=== PATIENT | male | born 1960 ===

== ENCOUNTER 2017-04-05 10:07 | Observation (INO) | payer BC ==
[2017-04-05 11:46] LABS: BASO % 0.6 % (0.0-2.0); EOS # 0.2 K/uL (0.0-0.7); EOS % 1.8 % (0.0-4.0); HEMATOCRIT 47.4 % (35.0-51.0); LYMPH # 2.6 K/uL (1.0-4.3); LYMPH % 29.5 % (20.0-40.0); MEAN CORPUSCULAR HEMOGLOBIN 28.6 pg (27.0-31.0); MEAN CORPUSCULAR HGB CONC 32.9 g/dL (33.0-37.0); MEAN PLATELET VOLUME 8.1 fL (7.2-11.7); MONO # 0.7 K/uL (0.0-0.8); RED CELL DISTRIBUTION WIDTH 15.1 % (11.5-14.5); WHITE BLOOD COUNT 8.7 K/uL (4.8-10.8)
[2017-04-05 11:55] LABS: CHLORIDE 103 mmol/L (98-107)
[2017-04-05 11:56] LABS: POTASSIUM 4.1 mmol/L (3.6-5.2); SODIUM 136 mmol/L (132-148)
[2017-04-05 11:58] LABS: BILIRUBIN,TOTAL 0.8 mg/dL (0.2-1.3); CARBON DIOXIDE 24 mmol/L (22-30); GFR AFRICAN-AMERICAN > 60
[2017-04-05 11:59] LABS: ALB/GLOB RATIO 1.4 (1.0-2.1); ALKALINE PHOSPHATASE 57 U/L (38-126); ALT/SGPT 51 U/L (21-72); AST/SGOT 39 U/L (17-59); BLOOD UREA NITROGEN 11 mg/dL (9-20); CALCIUM 8.6 mg/dl (8.6-10.4); GLUCOSE,RANDOM 133 mg/dL (75-110); TOTAL PROTEIN 7.4 g/dL (6.3-8.3)
--- NOTE | 2017-04-05 12:09 | C.PDOC ---
History Of Present Illness 57 year old patient, with a past medical history of asthma, presents to the ED complaining of intermittent chest pain and tightness for the past week. Patient states his symptoms are non-radiating, episodes last for 1-2 hours, and resolves spontaneously. Patient was seen by Dr. Jurado about 1 week ago. He was referred to Dr. Cr for a stress test. He was unable to get the stress test done until blood work was done. He rescheduled his stress test for 3 days from today. Patient states the pain was more severe last night which prompted the visit to the ED. He states the symptoms have resolved now after taking some Tylenol. Patient denies nausea, vomiting, shortness of breath, or diaphoresis. Time Seen by Provider: 04/05/17 11:45 Chief Complaint (Nursing): Chest Pain History Per: Patient History/Exam Limitations: no limitations Onset/Duration Of Symptoms: Intermittent Episodes (1 week) Current Symptoms Are (Timing): Still Present Context: Other Severity: Mild Pain Scale Rating Of: 3 Quality: Tightness, "Pain" Exacerbating Factors: None Alleviating Factors: None Recent travel outside of the [place]: No Past Medical History Reviewed: Historical Data, Nursing Documentation, Vital Signs Vital Signs: Last Vital Signs Temp 98.5 F 04/05/17 10:43 Pulse 69 04/05/17 10:43 Resp 20 04/05/17 10:43 BP 157/92 H 04/05/17 10:43 Pulse Ox 95 04/05/17 12:28 - Medical History PMH: Asthma Family History: States: Unknown Family Hx - Social History Hx Alcohol Use: No Hx Substance Use: No - Immunization History Hx Tetanus Toxoid Vaccination: No Hx Influenza Vaccination: No Hx Pneumococcal Vaccination: No Review Of Systems Except As Marked, All Systems Reviewed And Found Negative. Constitutional: Negative for: Other (diaphoresis) Cardiovascular: Positive for: Chest Pain Respiratory: Negative for: Shortness of Breath Gastrointestinal: Negative for: Nausea, Vomiting Physical Exam - Physical Exam Appears: Non-toxic, No Acute Distress Skin: Warm, Dry Head: Atraumatic, Normacephalic Eye(s): bilateral: Normal Inspection, EOMI Oral Mucosa: Moist Neck: Normal ROM, Supple Chest: Symmetrical, No Tenderness Cardiovascular: Rhythm Regular Respiratory: Normal Breath Sounds, No Rales, No Rhonchi, No Wheezing Gastrointestinal/Abdominal: Soft, No Tenderness Back: Normal Inspection, No CVA Tenderness Extremity: Normal ROM Neurological/Psych: Oriented x3, Normal Speech, Normal Cognition, Normal Motor, Normal Sensation Gait: Steady ED Course And Treatment - Laboratory Results Result Diagrams: 04/05/17 11:43 04/05/17 11:43 ECG: Interpreted By Me, Viewed By Me ECG Rhythm: Sinus Rhythm ECG Interpretation: Normal Rate From EC (bpm) O2 Sat by Pulse Oximetry: 95 (room air) Pulse Ox Interpretation: Normal Progress Note: Plan: EKG, Labs Medical Decision Making Medical Decision Making: discussed with Dr Jurado; [pt to be admitted for cp, but to Dr Jose Ramon Manjarrez. discussed with Dr Manjarrez, will admit to his service. Disposition Discussed With : Armida Manjarrez - Disposition Disposition: HOSPITALIZED Disposition Time: 13:38 Condition: STABLE - Clinical Impression Clinical Impression: Chest pain, Angina at rest - PA / SOUR BLEACHING PLEATER / Resident Statement MD/DO has reviewed & agrees with the documentation as recorded. - Scribe Statement The provider has reviewed the documentation as recorded by the Scribe Samanta Manjarrez All medical record entries made by the Scribe were at my direction and personally dictated by me. I have reviewed the chart and agree that the record accurately reflects my personal performance of the history, physical exam, medical decision making, and the department course for this patient. I have also personally directed, reviewed, and agree with the discharge instructions and disposition.
--- NOTE | 2017-04-05 14:04 | RAD ---
HISTORY: chest pain COMPARISON: None available TECHNIQUE: Chest PA and lateral FINDINGS: LUNGS: No focal consolidation. Please note that chest x-ray has limited sensitivity for the detection of pulmonary masses. PLEURA: No significant pleural effusion identified. No definite pneumothorax . CARDIOVASCULAR: Heart size appears within normal limits. OSSEOUS STRUCTURES: Degenerative changes of the spine. VISUALIZED UPPER ABDOMEN: Unremarkable. OTHER FINDINGS: None. IMPRESSION: No focal consolidation, significant pleural effusion, or definite pneumothorax identified.
--- NOTE | 2017-04-05 15:59 | CP.PCM.HP ---
History of Present Illness - History of Present Illness History of Present Illness: 57 years old male patient with past medical history of asthma presented to the emergency department with complaint of intermittent chest pain for the last 1 week. Pain is not radiating anywhere. Patient consulted Dr. Jurado 1 week back and referred for stress test but did not get a stress test done as blood work was pending. Patient states that the pain resolved after taking Tylenol. No fever nausea vomiting. No shortness of breath, no palpitation. Present on Admission - Present on Admission Any Indicators Present on Admission: No Past Patient History - Past Social History Smoking Status: Light Smoker < 10 Cigarettes Daily - PULMONARY Hx Asthma: Yes - PSYCHIATRIC Hx Substance Use: No - SURGICAL HISTORY Hx Orthopedic Surgery: Yes (BL hands) Meds Home Medications: Home Medication List Medication Instructions Recorded Confirmed Type Azithromycin 250 mg PO DAILY 5 Days 04/07/17 Rx Allergies/Adverse Reactions: Allergies Allergy/AdvReac Type Severity Reaction Status Date / Time No Known Allergies Allergy Verified 04/05/17 10:45 Physical Exam - Constitutional Appears: Well - Head Exam Head Exam: ATRAUMATIC, NORMAL INSPECTION, NORMOCEPHALIC - Eye Exam Eye Exam: EOMI, Normal appearance, PERRL Pupil Exam: NORMAL ACCOMODATION, PERRL - ENT Exam ENT Exam: Mucous Membranes Moist, Normal Exam - Neck Exam Neck exam: Positive for: Normal Inspection - Respiratory Exam Respiratory Exam: Decreased Breath Sounds - Cardiovascular Exam Cardiovascular Exam: REGULAR RHYTHM, +S1, +S2 - GI/Abdominal Exam GI & Abdominal Exam: Diminished Bowel Sounds, Soft - Rectal Exam Rectal Exam: Deferred Results - Vital Signs Recent Vital Signs: Last Vital Signs Temp 98.4 F 04/05/17 14:30 Pulse 62 04/05/17 14:30 Resp 20 04/05/17 14:30 BP 140/79 04/05/17 14:30 Pulse Ox 97 04/05/17 14:30 - Labs Result Diagrams: 04/06/17 11:43 04/06/17 11:43 Assessment & Plan (1) Angina at rest Status: Acute (2) Asthma Status: Acute (3) Asthma Status: Acute (4) Bronchitis Status: Acute (5) Bronchitis Status: Acute (6) Chest pain Status: Acute - Assessment and Plan (Free Text) Plan: [email or web address] labs protonix lovenox asp idconsult duoneb dr. castellon for cardio alecia same
--- NOTE | 2017-04-05 19:06 | CON ---
DATE: 04/05/2017 REQUESTING PHYSICIAN: Dr. Angel Manjarrez. HISTORY OF PRESENT ILLNESS: A 57-year-old gentleman was brought in with a history of chest discomfor t described as a heaviness since 2:00 in the morning. The patient has a history of borderline hypert ension and diabetes and also severe back pains. He patient was seen in the office about 2 weeks ago with chest discomfort and shortness of breath. There was no history of peptic ulcer disease, bleedin g disorders, TIAs or CVAs. MEDICATIONS AT HOME: Include Percocet for the back pains. PRIMARY CARE PHYSICIAN: The patient is under care of Dr. Jurado has a primary care physician. PERSONAL HISTORY: Half pack per day smoker, but used to smoke a pack a day. No ETOH abuse. FAMILY HISTORY: Mother had diabetes and MO. PAST MEDICAL HISTORY: History of surgery in both the hands from trauma many years ago. REVIEW OF SYSTEMS: NEUROLOGIC: No syncope. No TIAs. No CVAs. Negative for numbness or tingling. HEENT: No visual disturbances. No hearing problems. RESPIRATORY: No cough, no wheeze. Chest discomfort both exertional and nonexertional dyspnea on exe rtion. CARDIOVASCULAR: History of hypertension. GASTROINTESTINAL: Negative peptic ulcer disease, no bleeding disorders. No dysuria. MUSCULOSKELETAL: Severe low back pain. PERIPHERAL VASCULAR SYSTEM: No claudication. PSYCHIATRIC: No depression. PHYSICAL EXAMINATION: GENERAL: Shows a middle-aged male, in no distress. VITAL SIGNS: He is 5 feet 9 inches and weighs 205 pounds. Blood pressure is 156/90, heart rate of 8 0, respiratory rate of 12, afebrile. HEENT: Normal. NECK: Supple. LUNGS: Clear bilaterally. HEART: PMI is normal. S1, S2 is normal. Soft S4 gallop. Grade I-II/ systolic ejection murmur in the mitral area. ABDOMEN: Soft, nontender. EXTREMITIES: No cyanosis, clubbing or edema. Distal pulses are intact. EKG: Sinus rhythm, within normal limits. ASSESSMENT: A 57-year-old man with history of chest discomfort, doubt myocardial infarction. High l ikelihood of . PLAN: Continue the Lovenox, add Cozaar. RECOMMENDATIONS: We will obtain an echocardiogram in the morning, lipid profile and need cardiac cat heterization. Procedure benefits, risks were explained to the patient. We will ask interventional c ardiology to obtain a cardiac catheterization. Wale Flaherty MD cc: [id number] TT: 04/05/2017 19:04:59 Confirmation # [id number] Dictation # [id number]
[2017-04-05] MEDS: Albuterol-Ipratrop 3 mg / 0.5 (3 ml) UD INH SCH (19:27)
[2017-04-05] MEDS: Oxycodone/Acetaminophen 5/325 mg Tab PO PRN (21:33)
[2017-04-06] MEDS: Albuterol-Ipratrop 3 mg / 0.5 (3 ml) UD INH SCH ×3 (02:30→13:31)
[2017-04-06] MEDS: Oxycodone/Acetaminophen 5/325 mg Tab PO PRN ×2 (07:39→20:24)
[2017-04-06] MEDS: Pantoprazole 40 mg EC Tab PO SCH (10:15)
[2017-04-06] MEDS: Enoxaparin 40 mg Syringe SC SCH (10:17)
[2017-04-06 11:53] LABS: BASO % 0.5 % (0.0-2.0); EOS # 0.1 K/uL (0.0-0.7); EOS % 1.2 % (0.0-4.0); HEMATOCRIT 43.8 % (35.0-51.0); LYMPH # 3.1 K/uL (1.0-4.3); LYMPH % 36.5 % (20.0-40.0); MEAN CELL VOLUME 87.7 fL (80.0-94.0); MEAN CORPUSCULAR HEMOGLOBIN 28.9 pg (27.0-31.0); MEAN CORPUSCULAR HGB CONC 32.9 g/dL (33.0-37.0); MEAN PLATELET VOLUME 8.5 fL (7.2-11.7); MONO # 0.6 K/uL (0.0-0.8); MONO % 7.6 % (0.0-10.0); RED CELL DISTRIBUTION WIDTH 14.6 % (11.5-14.5); WHITE BLOOD COUNT 8.4 K/uL (4.8-10.8)
[2017-04-06 12:17] LABS: CHLORIDE 102 mmol/L (98-107); SODIUM 137 mmol/L (132-148)
[2017-04-06 12:18] LABS: POTASSIUM 3.9 mmol/L (3.6-5.2)
[2017-04-06 12:20] LABS: ALB/GLOB RATIO 1.4 (1.0-2.1); ALKALINE PHOSPHATASE 61 U/L (38-126); ALT/SGPT 49 U/L (21-72); AST/SGOT 42 U/L (17-59); BILIRUBIN,TOTAL 0.6 mg/dL (0.2-1.3); BLOOD UREA NITROGEN 10 mg/dL (9-20); CARBON DIOXIDE 26 mmol/L (22-30); GFR AFRICAN-AMERICAN > 60; GLUCOSE,RANDOM 133 mg/dL (75-110); TOTAL PROTEIN 6.6 g/dL (6.3-8.3)
[2017-04-06 12:21] LABS: CALCIUM 8.3 mg/dl (8.6-10.4)
--- NOTE | 2017-04-06 13:37 | CP.PCM.PN ---
Subjective - Date & Time of Evaluation Date of Evaluation: 04/06/17 Time of Evaluation: 13:36 - Subjective Subjective: for cath today Objective - Vital Signs/Intake and Output Vital Signs (last 24 hours): Temp Pulse Resp BP Pulse Ox 97.4 F L 63 18 113/71 99 04/06/17 07:17 04/06/17 08:21 04/06/17 07:17 04/06/17 07:17 04/06/17 07:17 - Medications Medications: Current Medications Albuterol/Ipratropium (Duoneb 3 Mg/0.5 Mg (3 Ml) Ud) 3 ml INH RQ6 [facility] Last Admin: 04/06/17 13:31 Dose: 3 ml Aspirin (Aspirin Chewable) 81 mg PO DAILY [facility] Last Admin: 04/06/17 10:15 Dose: 81 mg Enoxaparin Sodium (Lovenox) 40 mg SC DAILY [facility] Last Admin: 04/06/17 10:17 Dose: Not Given Losartan Potassium (Cozaar) 50 mg PO DAILY [facility] Last Admin: 04/06/17 10:15 Dose: 50 mg Oxycodone/Acetaminophen (Percocet 5/325 Mg Tab) 2 tab PO Q6H PRN PRN Reason: Pain, severe (8-10) Last Admin: 04/06/17 07:39 Dose: 2 tab Pantoprazole Sodium (Protonix Ec Tab) 40 mg PO DAILY [facility] Last Admin: 04/06/17 10:15 Dose: 40 mg Rosuvastatin Calcium (Crestor) 10 mg PO HS [facility] Last Admin: 04/05/17 21:30 Dose: 10 mg - Labs Labs: 04/06/17 11:43 04/06/17 11:43 PT 10.6 SECONDS (9.7-12.2) 04/05/17 12:40 INR 1.0 04/05/17 12:40 APTT 33 SECONDS (21-34) 04/05/17 12:40 - Constitutional Appears: No Acute Distress - Eye Exam Eye Exam: Normal appearance - ENT Exam ENT Exam: Normal Exam - Respiratory Exam Respiratory Exam: Clear to Ausculation Bilateral - Cardiovascular Exam Cardiovascular Exam: REGULAR RHYTHM, +S4 - GI/Abdominal Exam GI & Abdominal Exam: Soft - Neurological Exam Neurological Exam: Alert, Oriented x3 Assessment and Plan - Assessment and Plan (Free Text) Assessment: chest pains.poss anginal.cath today
[2017-04-06] MEDS ORDERED: DiphenhydrAMINE 50 mg/ml Inj ONE (13:45)
[2017-04-06] MEDS ORDERED: Iodixanol 320 MG/ML 100 ML BOTTLE IV ONE (13:46)
--- NOTE | 2017-04-06 14:34 | CP.PCM.PN ---
Subjective - Date & Time of Evaluation Date of Evaluation: 04/06/17 Time of Evaluation: 14:29 - Subjective Subjective: CARDIAC CATHETERIZATION FINDINGS: LM: Normal LAD: average caliber, no obstruction LCX: Average caliber, no obstruction RCA: Dominant; average caliber, no obstruction LV: Normal contractility and wall motion, LVED: upper normal @15mmhg R. femoral sheath removed, manual pressure held; hemostasis achieved. Patient may be dc'd if appropriated by care team 4 hours after sheath pull if no cath related complaints. Objective - Vital Signs/Intake and Output Vital Signs (last 24 hours): Temp Pulse Resp BP Pulse Ox 97.4 F L 63 18 113/71 99 04/06/17 07:17 04/06/17 08:21 04/06/17 07:17 04/06/17 07:17 04/06/17 07:17 - Medications Medications: Current Medications Albuterol/Ipratropium (Duoneb 3 Mg/0.5 Mg (3 Ml) Ud) 3 ml INH RQ6 [facility] Last Admin: 04/06/17 13:31 Dose: 3 ml Aspirin (Aspirin Chewable) 81 mg PO DAILY [facility] Last Admin: 04/06/17 10:15 Dose: 81 mg Enoxaparin Sodium (Lovenox) 40 mg SC DAILY [facility] Last Admin: 04/06/17 10:17 Dose: Not Given Losartan Potassium (Cozaar) 50 mg PO DAILY [facility] Last Admin: 04/06/17 10:15 Dose: 50 mg Oxycodone/Acetaminophen (Percocet 5/325 Mg Tab) 2 tab PO Q6H PRN PRN Reason: Pain, severe (8-10) Last Admin: 04/06/17 07:39 Dose: 2 tab Pantoprazole Sodium (Protonix Ec Tab) 40 mg PO DAILY [facility] Last Admin: 04/06/17 10:15 Dose: 40 mg Rosuvastatin Calcium (Crestor) 10 mg PO HS [facility] Last Admin: 04/05/17 21:30 Dose: 10 mg - Labs Labs: 04/06/17 11:43 04/06/17 11:43 PT 10.6 SECONDS (9.7-12.2) 04/05/17 12:40 INR 1.0 04/05/17 12:40 APTT 33 SECONDS (21-34) 04/05/17 12:40
--- NOTE | 2017-04-06 15:08 | CARDCATH ---
PROCEDURE DATE: 04/06/2017 BRIEF HISTORY: The patient is a 57-year-old with history of chronic smoking, does not report hyperte nsion, diabetes, prior [place], stroke or any significant bleeding problems. He presented to the hospital with crescendo-like chest pain described as aching and dullness in the left chest, frequently recurr ing with exertion. His EKG was normal sinus rhythm. ACS was ruled out by enzymes and 2D echocardiogr am revealed normal LV function and wall motion. Based on his typical presentation, risks and benefit s of cardiac catheterization were explained and patient was agreeable and brought to cardiac catheter ization lab for evaluation. Informed consent was obtained after explaining risks and benefits. The patient was on treatment with Lovenox and Lovenox was held in the morning. The patient was prepped and draped in the usual sterile fashion and right femoral artery access was o btained using a micropuncture technique. A 6-Occitan sheath was placed in the right femoral artery an d diagnostic angiography was done using standard JL4, JR4 and pigtail catheters. FINDINGS: 1. Left main bifurcates into LAD and left circumflex. Left main was normal caliber and angiographic ally normal. 2. Left anterior descending artery was an average caliber vessel without angiographic obstruction. 3. Left circumflex was an average caliber vessel without angiographic obstruction. 4. Right coronary artery was a dominant vessel, average caliber and angiographically without obstruc tion. Left ventriculography was performed which showed normal left ventricular contractility with ejection fraction of 55% and measured LVEDP of 15 mmHg. CONCLUSIONS: 1. Angiographically normal coronary arteries. 2. Normal left ventricular contractility and upper normal left ventricular end-diastolic pressure. PLAN: 1. Suggest reevaluation for noncardiac causes of chest pain. 2. Smoking cessation strongly advised and patient was counseled. 3. Continue lifestyle modification, low cholesterol diet. 4. Right femoral artery sheath was removed and manual pressure was held until hemostasis achieved. The patient can be discharged if indicated 4 hours after sheath pull. Chicho Dial MD cc: [id number] TT: 04/06/2017 15:08:23 roly
[2017-04-06 15:44] VITALS: RESP 20
--- NOTE | 2017-04-06 16:00 | CP.PCM.CON ---
History of Present Illness - History of Present Illness History of Present Illness: History Of Present Illness 57 year old patient, with a past medical history of asthma, presents to the ED complaining of intermittent chest pain and tightness for the past week. Patient states his symptoms are non-radiating, episodes last for 1-2 hours, and resolves spontaneously. Patient was seen by Dr. Riley about 1 week ago. He was referred to Dr. Cr for a stress test. He was unable to get the stress test done until blood work was done. He rescheduled his stress test for 3 days from today. Patient states the pain was more severe last night which prompted the visit to the ED. He states the symptoms have resolved now after taking some Tylenol. Patient denies nausea, vomiting, shortness of breath, or diaphoresis. Review of Systems - Constitutional Constitutional: As Per HPI - EENT Eyes: absent: As Per HPI, Blind Spots, Blurred Vision, Change in Vision, Decreased Night Vision, Diplopia, Discharge, Dry Eye, Exophthalmos, Floaters, Irritation, Itchy Eyes, Loss of Peripheral Vision, Pain, Photophobia, Requires Corrective Lenses, Sees Flashes, Spots in Vision, Tunnel Vision, Other Visual Disturbances, Loss of Vision, Other Ears: absent: As Per HPI, Decreased Hearing, Ear Discharge, Ear Pain, Tinnitus, Abnormal Hearing, Disequilibrium, Dizziness, Other Nose/Mouth/Throat: absent: As Per HPI, Epistaxis, Nasal Congestion, Nasal Discharge, Nasal Obstruction, Nasal Trauma, Nose Pain, Post Nasal Drip, Sinus Pain, Sinus Pressure, Bleeding Gums, Change in Voice, Dental Pain, Dry Mouth, Dysphagia, Halitosis, Hoarsness, Lip Swelling, Mouth Lesions, Mouth Pain, Odynophagia, Sore Throat, Throat Swelling, Tongue Swelling, Facial Pain, Neck Pain, Neck Mass, Other - Cardiovascular Cardiovascular: As Per HPI - Respiratory Respiratory: As Per HPI, Cough, Dyspnea - Gastrointestinal Gastrointestinal: absent: As Per HPI, Abdominal Pain, Belching, Bloating, Change in Bowel Habits, Change in Stool Character, Coffee Ground Emesis, Constipation, Cramping, Diarrhea, Dyspepsia, Dysphagia, Early Satiety, Excessive Flatus, Fecal Incontinence, Heartburn, Hematemesis, Hematochezia, Loose Stools, Melena, Nausea, Odynophagia, Temesmus, Vomiting, Other - Genitourinary Genitourinary: absent: As Per HPI, Change in Urinary Stream, Difficulty Urinating, Dysuria, Flank Pain, Hematuria, Pyuria, Nocturia, Urinary Incontinence, Urinary Frequency, Urinary Hesitance, Urinary Urgency, Voiding Freq/Small Amts, Freq UTI, Hx Renal/Bladder Calculi, Hx /Renal Surgery, Bladder Distension, Other - Musculoskeletal Musculoskeletal: absent: As Per HPI, Abnormal Gait, Arthralgias, Atrophy, Back Pain, Deformity, Joint Swelling, Limited Range of Motion, Loss of Height, Muscle Cramps, Muscle Weakness, Myalgias, Neck Pain, Numbness, Radiating Pain into Limb, Stiffness, Tingling, Other - Integumentary Integumentary: absent: As Per HPI, Acne, Alopecia, Bleeding Lesions, Change in Hair, Change in Nails, Change in Pigmentation, Changing Lesions, Dry Skin, Erythema, Furuncle, Hirsutism, Lesions, New Lesions, Non-Healing Lesions, Photosensitivity, Pruritus, Rash, Skin Pain, Skin Ulcer, Sores, Striae, Swelling , Unusual Bruising, Wounds, Jaundice, Other - Neurological Neurological: absent: As Per HPI, Abnormal Gait, Abnormal Hearing, Abnormal Movements, Abnormal Speech, Behavioral Changes, Burning Sensations, Confusion, Convulsions, Disequilibrium, Dizziness, Numbness, Focal Weakness, Frequent Falls , Headaches, Lack of Coordination, Loss of Vision, Memory Loss, Paresthesias, Radicular Pain, Restless Legs, Sensory Deficit, Syncope, Tingling, Tremor, Vertigo, Weakness, Other Visual Disturbances, Other - Psychiatric Psychiatric: absent: As Per HPI, Abnormal Sleep Pattern, Anhedonia, Anxiety, Auditory Hallucinations, Behavioral Changes, Change in Appetite, Change in Libido, Confusion, Depression, Difficulty Concentrating, Hallucinations, Homicidal Ideation, Hopelessness, Irritability, Memory Loss, Mood Swings, Panic Attacks, Paranoia, Suicidal Ideation, Visual Hallucinations, Tactile Hallucinations, Other - Endocrine Endocrine: absent: As Per HPI, Change in Body Appearance, Change in Libido, Cold Intolorance, Deepening of Voice, Excessive Sweating, Fatigue, Flushing, Heat Intolorance, Increase in Ring/Shoe/Hat Size, Palpitations, Polydipsia, Polyphagia, Polyuria, Other - Hematologic/Lymphatic Hematologic: absent: As Per HPI, Easy Bleeding, Easy Bruising, Lymphadenopathy, Other Past Patient History - Past Medical History & Family History Past Medical History?: Yes - Past Social History Smoking Status: Light Smoker < 10 Cigarettes Daily - CARDIAC Hx Cardiac Disorders: No - PULMONARY Hx Asthma: Yes - NEUROLOGICAL Hx Neurological Disorder: No - HEENT Hx HEENT Problems: No - RENAL Hx Chronic Kidney Disease: No - ENDOCRINE/METABOLIC Hx Endocrine Disorders: No - HEMATOLOGICAL/ONCOLOGICAL Hx Hepatitis C: Yes - INTEGUMENTARY Hx Dermatological Problems: No - MUSCULOSKELETAL/RHEUMATOLOGICAL Hx Back Pain: Yes Hx Falls: No - GASTROINTESTINAL Hx Gastrointestinal Disorders: No - GENITOURINARY/GYNECOLOGICAL Hx Genitourinary Disorders: No - PSYCHIATRIC Hx Substance Use: No - SURGICAL HISTORY Hx Orthopedic Surgery: Yes (BL hands) - ANESTHESIA Hx Anesthesia: Yes Hx Anesthesia Reactions: No Hx Malignant Hyperthermia: No Has any member of the family had a problem w/ anesthesia?: No Meds Allergies/Adverse Reactions: Allergies Allergy/AdvReac Type Severity Reaction Status Date / Time No Known Allergies Allergy Verified 04/05/17 10:45 - Medications Medications: Current Medications Albuterol/Ipratropium (Duoneb 3 Mg/0.5 Mg (3 Ml) Ud) 3 ml INH RQ6 [facility] Last Admin: 04/06/17 13:31 Dose: 3 ml Aspirin (Aspirin Chewable) 81 mg PO DAILY [facility] Last Admin: 04/06/17 10:15 Dose: 81 mg Enoxaparin Sodium (Lovenox) 40 mg SC DAILY [facility] Last Admin: 04/06/17 10:17 Dose: Not Given Losartan Potassium (Cozaar) 50 mg PO DAILY [facility] Last Admin: 04/06/17 10:15 Dose: 50 mg Oxycodone/Acetaminophen (Percocet 5/325 Mg Tab) 2 tab PO Q6H PRN PRN Reason: Pain, severe (8-10) Last Admin: 04/06/17 07:39 Dose: 2 tab Pantoprazole Sodium (Protonix Ec Tab) 40 mg PO DAILY [facility] Last Admin: 04/06/17 10:15 Dose: 40 mg Rosuvastatin Calcium (Crestor) 10 mg PO HS [facility] Last Admin: 04/05/17 21:30 Dose: 10 mg Physical Exam - Constitutional Appears: Non-toxic, Chronically Ill - Head Exam Head Exam: NORMOCEPHALIC - Eye Exam Eye Exam: PERRL. absent: Scleral icterus - ENT Exam ENT Exam: Mucous Membranes Dry, Normal External Ear Exam - Neck Exam Neck exam: Negative for: Lymphadenopathy - Respiratory Exam Respiratory Exam: Decreased Breath Sounds, Rhonchi, Wheezes - Cardiovascular Exam Cardiovascular Exam: REGULAR RHYTHM, +S1, +S2 - GI/Abdominal Exam GI & Abdominal Exam: Diminished Bowel Sounds, Soft. absent: Tenderness - Rectal Exam Rectal Exam: Deferred - Exam Exam: NORMAL INSPECTION Results - Vital Signs Recent Vital Signs: Last Vital Signs Temp 98.2 F 04/06/17 15:43 Pulse 61 04/06/17 15:43 Resp 20 04/06/17 15:43 BP 117/69 04/06/17 15:43 Pulse Ox 96 04/06/17 15:43 - Labs Result Diagrams: 04/06/17 11:43 04/06/17 11:43 Labs: Laboratory Results - last 24 hr 04/05/17 04/06/17 04/06/17 18:01 06:25 11:43 WBC 8.4 RBC 5.00 Hgb 14.4 Hct 43.8 MCV 87.7 MCH 28.9 MCHC 32.9 L RDW 14.6 H Plt Count 201 MPV 8.5 Neut % (Auto) 54.2 Lymph % (Auto) 36.5 [place] % (Auto) 7.6 Eos % (Auto) 1.2 Baso % (Auto) 0.5 Neut # 4.6 Lymph # 3.1 [place] # 0.6 Eos # 0.1 Baso # 0.0 Sodium Potassium Chloride Carbon Dioxide Anion Gap BUN Creatinine Est GFR ( Amer) Est GFR (Non-Af Amer) Random Glucose Calcium Total Bilirubin AST ALT Alkaline Phosphatase Total Creatine Kinase 150 91 CK-MB (Mass) 1.37 1.01 Troponin I, Quant < 0.0120 < 0.0120 Total Protein Albumin Globulin Albumin/Globulin Ratio 04/06/17 11:43 WBC RBC Hgb Hct MCV MCH MCHC RDW Plt Count MPV Neut % (Auto) Lymph % (Auto) [place] % (Auto) Eos % (Auto) Baso % (Auto) Neut # Lymph # [place] # Eos # Baso # Sodium 137 Potassium 3.9 Chloride 102 Carbon Dioxide 26 Anion Gap 14 BUN 10 Creatinine 0.7 L Est GFR ( Amer) > 60 Est GFR (Non-Af Amer) > 60 Random Glucose 133 H Calcium 8.3 L Total Bilirubin 0.6 AST 42 ALT 49 Alkaline Phosphatase 61 Total Creatine Kinase CK-MB (Mass) Troponin I, Quant Total Protein 6.6 Albumin 3.9 Globulin 2.7 Albumin/Globulin Ratio 1.4 Assessment & Plan (1) Bronchitis Status: Acute (2) Bronchitis Status: Acute (3) Asthma Status: Acute (4) Asthma Status: Acute (5) Angina at rest Status: Acute (6) Chest pain Status: Acute - Assessment and Plan (Free Text) Assessment: CONT BRONCHODILATORS HOLD ANTIBIOTICS FOLLOW UP WITH DR RILEY OUT PT
--- NOTE | 2017-04-06 18:12 | CP.PCM.PN ---
Subjective - Date & Time of Evaluation Date of Evaluation: 04/06/17 Time of Evaluation: 13:20 - Subjective Subjective: clinically same Objective - Vital Signs/Intake and Output Vital Signs (last 24 hours): Temp Pulse Resp BP Pulse Ox 98.2 F 61 20 117/69 96 04/06/17 15:43 04/06/17 15:43 04/06/17 15:43 04/06/17 15:43 04/06/17 15:43 - Medications Medications: Current Medications Albuterol/Ipratropium (Duoneb 3 Mg/0.5 Mg (3 Ml) Ud) 3 ml INH RQ6 [facility] Last Admin: 04/06/17 13:31 Dose: 3 ml Aspirin (Aspirin Chewable) 81 mg PO DAILY [facility] Last Admin: 04/06/17 10:15 Dose: 81 mg Enoxaparin Sodium (Lovenox) 40 mg SC DAILY [facility] Last Admin: 04/06/17 10:17 Dose: Not Given Losartan Potassium (Cozaar) 50 mg PO DAILY [facility] Last Admin: 04/06/17 10:15 Dose: 50 mg Oxycodone/Acetaminophen (Percocet 5/325 Mg Tab) 2 tab PO Q6H PRN PRN Reason: Pain, severe (8-10) Last Admin: 04/06/17 07:39 Dose: 2 tab Pantoprazole Sodium (Protonix Ec Tab) 40 mg PO DAILY [facility] Last Admin: 04/06/17 10:15 Dose: 40 mg Rosuvastatin Calcium (Crestor) 10 mg PO HS [facility] Last Admin: 04/05/17 21:30 Dose: 10 mg - Labs Labs: 04/06/17 11:43 04/06/17 11:43 PT 10.6 SECONDS (9.7-12.2) 04/05/17 12:40 INR 1.0 04/05/17 12:40 APTT 33 SECONDS (21-34) 04/05/17 12:40 - Constitutional Appears: Well - Head Exam Head Exam: ATRAUMATIC, NORMAL INSPECTION, NORMOCEPHALIC - Eye Exam Eye Exam: EOMI, Normal appearance, PERRL Pupil Exam: NORMAL ACCOMODATION, PERRL - ENT Exam ENT Exam: Mucous Membranes Moist, Normal Exam - Neck Exam Neck Exam: Full ROM, Normal Inspection. absent: Lymphadenopathy - Respiratory Exam Respiratory Exam: Decreased Breath Sounds - Cardiovascular Exam Cardiovascular Exam: REGULAR RHYTHM, +S1, +S2 - GI/Abdominal Exam GI & Abdominal Exam: Soft, Diminished Bowel Sounds - Rectal Exam Rectal Exam: Deferred Assessment and Plan (1) Angina at rest Status: Acute (2) Asthma Status: Acute (3) Asthma Status: Acute (4) Bronchitis Status: Acute (5) Bronchitis Status: Acute (6) Chest pain Status: Acute - Assessment and Plan (Free Text) Plan: Consult cardiology Consult pulmonology ECG normal Duoneb Aspirin Lovenox Cozaar Percocet Scheduled for cath today
[2017-04-07] MEDS: Albuterol-Ipratrop 3 mg / 0.5 (3 ml) UD INH SCH ×3 (01:13→13:24)
[2017-04-07] MEDS: Oxycodone/Acetaminophen 5/325 mg Tab PO PRN ×2 (03:06→09:19)
--- NOTE | 2017-04-07 04:39 | CARD ---
APPROVED REPORT EXAM: Two-dimensional and M-mode echocardiogram with Doppler and color Doppler. Other Information Quality : GoodRhythm : NSR INDICATION Chest Pain M-Mode DIMENSIONS RVDd1.91 (2.1-3.2cm)Left Atrium (MM)4.14 (2.5-4.0cm) IVSd1.41 (0.7-1.1cm)Aortic Root3.01 (2.2-3.7cm) LVDd4.96 (4.0-5.6cm)Aortic Cusp Exc.1.64 (1.5-2.0cm) PWd1.41 (0.7-1.1cm)FS (%) 31 % LVDs3.40 (2.0-3.8cm)LVEF (%)59 (>50%) Aortic Valve AoV Peak Ishsctpc148.6cm/Adam Peak GR.10mmHg Mitral Valve MV E Iqcodyro94.6cm/sMV A Xgowwsvp41.1cm/sE/A ratio1.1 TDI E/Lateral E'0.0E/Medial E'0.0 Tricuspid Valve TR Peak Cxjpdtzf834tl/sTR Peak Gr.25saSlFAQN88pdZr LEFT VENTRICLE The left ventricle is normal size. There is mild to moderate concentric left ventricular hypertrophy. Left ventricle systolic function is normal. The Ejection Fraction is 55-60%. There is normal LV segmental wall motion. The left ventricular diastolic function is normal. RIGHT VENTRICLE The right ventricle is normal size. There is normal right ventricular wall thickness. The right ventricular systolic function is normal. ATRIA The left atrium is mildly dilated. The right atrium size is normal. The interatrial septum is intact with no evidence for an atrial septal defect. AORTIC VALVE The aortic valve is normal in structure. No aortic regurgitation is present. There is no aortic valvular stenosis. There is no aortic valvular vegetation. MITRAL VALVE The mitral valve is normal in structure. There is no evidence of mitral valve prolapse. There is no mitral valve stenosis. There is no mitral valve regurgitation noted. TRICUSPID VALVE The tricuspid valve is normal in structure. There is mild tricuspid regurgitation. Right ventricular systolic pressure is estimated at less than 30 mmHg. There is no pulmonary hypertension. PULMONIC VALVE The pulmonic valve is not well visualized. There is no pulmonic valvular regurgitation. GREAT VESSELS The aortic root is normal in size. PERICARDIAL EFFUSION There is no pericardial effusion. <Conclusion> Left ventricle systolic function is normal. The Ejection Fraction is 55-60%. Hypertensive heart disease. No aortic regurgitation is present. There is no mitral valve regurgitation noted. There is mild tricuspid regurgitation. There is no pulmonary hypertension. There is no pulmonic valvular regurgitation.
--- NOTE | 2017-04-07 09:18 | CP.PCM.PN ---
Subjective - Date & Time of Evaluation Date of Evaluation: 04/07/17 Time of Evaluation: 12:20 - Subjective Subjective: clinically same Objective - Vital Signs/Intake and Output Vital Signs (last 24 hours): Temp Pulse Resp BP Pulse Ox 98.3 F 68 20 101/57 L 95 04/06/17 23:20 04/07/17 02:02 04/06/17 23:20 04/06/17 23:20 04/06/17 23:20 - Medications Medications: Current Medications Albuterol/Ipratropium (Duoneb 3 Mg/0.5 Mg (3 Ml) Ud) 3 ml INH RQ6 [facility] Last Admin: 04/07/17 07:29 Dose: 3 ml Aspirin (Aspirin Chewable) 81 mg PO DAILY [facility] Last Admin: 04/06/17 10:15 Dose: 81 mg Enoxaparin Sodium (Lovenox) 40 mg SC DAILY [facility] Last Admin: 04/06/17 10:17 Dose: Not Given Losartan Potassium (Cozaar) 50 mg PO DAILY [facility] Last Admin: 04/06/17 10:15 Dose: 50 mg Oxycodone/Acetaminophen (Percocet 5/325 Mg Tab) 2 tab PO Q6H PRN PRN Reason: Pain, severe (8-10) Last Admin: 04/07/17 03:06 Dose: 2 tab Pantoprazole Sodium (Protonix Ec Tab) 40 mg PO DAILY [facility] Last Admin: 04/06/17 10:15 Dose: 40 mg Rosuvastatin Calcium (Crestor) 10 mg PO HS [facility] Last Admin: 04/06/17 23:21 Dose: 10 mg - Labs Labs: 04/06/17 11:43 04/06/17 11:43 PT 10.6 SECONDS (9.7-12.2) 04/05/17 12:40 INR 1.0 04/05/17 12:40 APTT 33 SECONDS (21-34) 04/05/17 12:40 - Constitutional Appears: Well - Head Exam Head Exam: ATRAUMATIC, NORMAL INSPECTION, NORMOCEPHALIC - Eye Exam Eye Exam: EOMI, Normal appearance, PERRL Pupil Exam: NORMAL ACCOMODATION, PERRL - ENT Exam ENT Exam: Mucous Membranes Moist, Normal Exam - Neck Exam Neck Exam: Full ROM, Normal Inspection. absent: Lymphadenopathy - Respiratory Exam Respiratory Exam: Decreased Breath Sounds - Cardiovascular Exam Cardiovascular Exam: REGULAR RHYTHM, +S1, +S2 - GI/Abdominal Exam GI & Abdominal Exam: Soft, Diminished Bowel Sounds - Rectal Exam Rectal Exam: Deferred Assessment and Plan (1) Angina at rest Status: Acute (2) Asthma Status: Acute (3) Asthma Status: Acute (4) Bronchitis Status: Acute (5) Bronchitis Status: Acute (6) Chest pain Status: Acute - Assessment and Plan (Free Text) Plan: Cardiac cath results were normal Patient to be transferred to [facility] for AVR today Follow-up with Dr. Jurado in 2-3 days
[2017-04-07] MEDS: Enoxaparin 40 mg Syringe SC SCH (09:20)
[2017-04-07] MEDS: Pantoprazole 40 mg EC Tab PO SCH (09:21)
[2017-04-07 09:32] VITALS: BP 109/61; PULSE 66; TEMP 98.1; O2SAT 97
--- NOTE | 2017-04-07 10:14 | CP.PCM.PN ---
Subjective - Date & Time of Evaluation Date of Evaluation: 04/07/17 Time of Evaluation: 08:35 - Subjective Subjective: Medicine Note- Dr. Manjarrez's service Patient was seen and examined at bedside. Patient reports no acute complaints at this time. He says he is very mildly short of breath. Denies chest pain, palpitations. Patient understands that cath results were normal. No events overnight, per nursing. Objective - Vital Signs/Intake and Output Vital Signs (last 24 hours): Temp Pulse Resp BP Pulse Ox 98.1 F 66 20 109/61 97 04/07/17 07:27 04/07/17 07:27 04/07/17 07:27 04/07/17 07:27 04/07/17 07:27 - Medications Medications: Current Medications Albuterol/Ipratropium (Duoneb 3 Mg/0.5 Mg (3 Ml) Ud) 3 ml INH RQ6 [facility] Last Admin: 04/07/17 07:29 Dose: 3 ml Aspirin (Aspirin Chewable) 81 mg PO DAILY [facility] Last Admin: 04/07/17 09:23 Dose: 81 mg Enoxaparin Sodium (Lovenox) 40 mg SC DAILY [facility] Last Admin: 04/07/17 09:20 Dose: 40 mg Losartan Potassium (Cozaar) 50 mg PO DAILY [facility] Last Admin: 04/07/17 09:24 Dose: 50 mg Oxycodone/Acetaminophen (Percocet 5/325 Mg Tab) 2 tab PO Q6H PRN PRN Reason: Pain, severe (8-10) Last Admin: 04/07/17 09:19 Dose: 2 tab Pantoprazole Sodium (Protonix Ec Tab) 40 mg PO DAILY [facility] Last Admin: 04/07/17 09:21 Dose: 40 mg Rosuvastatin Calcium (Crestor) 10 mg PO HS [facility] Last Admin: 04/06/17 23:21 Dose: 10 mg - Labs Labs: 04/06/17 11:43 04/06/17 11:43 PT 10.6 SECONDS (9.7-12.2) 04/05/17 12:40 INR 1.0 04/05/17 12:40 APTT 33 SECONDS (21-34) 04/05/17 12:40 - Constitutional Appears: Non-toxic, No Acute Distress - Head Exam Head Exam: ATRAUMATIC, NORMAL INSPECTION, NORMOCEPHALIC - Eye Exam Pupil Exam: NORMAL ACCOMODATION, PERRL - ENT Exam ENT Exam: Mucous Membranes Moist - Respiratory Exam Respiratory Exam: Decreased Breath Sounds, NORMAL BREATHING PATTERN - Cardiovascular Exam Cardiovascular Exam: REGULAR RHYTHM, +S1, +S2 - GI/Abdominal Exam GI & Abdominal Exam: Soft, Normal Bowel Sounds. absent: Tenderness, Diminished Bowel Sounds, Hernia, Hypoactive Bowel Sounds - Extremities Exam Extremities Exam: Normal Capillary Refill, Normal Inspection - Neurological Exam Neurological Exam: Alert, Awake, Oriented x3 - Psychiatric Exam Psychiatric exam: Normal Affect, Normal Mood - Skin Skin Exam: Dry, Intact, Normal Color, Warm Assessment and Plan - Assessment and Plan (Free Text) Assessment: Chest pain ROMIS negative x 3 Consult cardio-Dr. Flaherty and Dr. Erickson Cardiac cath- 04/06/17 LM: Normal LAD: average caliber, no obstruction LCX: Average caliber, no obstruction RCA: Dominant; average caliber, no obstruction LV: Normal contractility and wall motion, LVED: upper normal @15mmhg Echo- 04/04/17- LV systolic function normal. EF 55-60%. Hypertensive heart disease EKG-04/05/17- 73 bpm- NSR Asa 81mg PO Daily Crestor 10mg PO HS Hypertension Cozaar 50mg PO Daily Asthma Duoneb Q6h PRN Back Pain Percocet 2tab PO Q6h PRN Prophylactic Measure Protonix 40mg PO Daily LOvenox 40mg SC Daily All medical management as per Dr. Manjarrez. Patient to be transferred to [facility] for AVR today
--- NOTE | 2017-04-07 12:25 | CP.PCM.PN ---
Subjective - Date & Time of Evaluation Date of Evaluation: 04/07/17 Time of Evaluation: 12:24 - Subjective Subjective: diarrehea.on zithromax. Objective - Vital Signs/Intake and Output Vital Signs (last 24 hours): Temp Pulse Resp BP Pulse Ox 98.1 F 66 20 109/61 97 04/07/17 07:27 04/07/17 07:27 04/07/17 07:27 04/07/17 07:27 04/07/17 07:27 - Medications Medications: Current Medications Albuterol/Ipratropium (Duoneb 3 Mg/0.5 Mg (3 Ml) Ud) 3 ml INH RQ6 [facility] Last Admin: 04/07/17 07:29 Dose: 3 ml Aspirin (Aspirin Chewable) 81 mg PO DAILY [facility] Last Admin: 04/07/17 09:23 Dose: 81 mg Enoxaparin Sodium (Lovenox) 40 mg SC DAILY [facility] Last Admin: 04/07/17 09:20 Dose: 40 mg Losartan Potassium (Cozaar) 50 mg PO DAILY [facility] Last Admin: 04/07/17 09:24 Dose: 50 mg Oxycodone/Acetaminophen (Percocet 5/325 Mg Tab) 2 tab PO Q6H PRN PRN Reason: Pain, severe (8-10) Last Admin: 04/07/17 09:19 Dose: 2 tab Pantoprazole Sodium (Protonix Ec Tab) 40 mg PO DAILY [facility] Last Admin: 04/07/17 09:21 Dose: 40 mg Rosuvastatin Calcium (Crestor) 10 mg PO HS [facility] Last Admin: 04/06/17 23:21 Dose: 10 mg - Labs Labs: 04/06/17 11:43 04/06/17 11:43 PT 10.6 SECONDS (9.7-12.2) 04/05/17 12:40 INR 1.0 04/05/17 12:40 APTT 33 SECONDS (21-34) 04/05/17 12:40 - Constitutional Appears: No Acute Distress - Eye Exam Eye Exam: Normal appearance - ENT Exam ENT Exam: Mucous Membranes Moist - Neck Exam Neck Exam: Normal Inspection - Respiratory Exam Respiratory Exam: Clear to Ausculation Bilateral - Cardiovascular Exam Cardiovascular Exam: Irregular Rhythm, Murmur - GI/Abdominal Exam GI & Abdominal Exam: Soft - Extremities Exam Extremities Exam: absent: Pedal Edema - Neurological Exam Neurological Exam: Alert, Oriented x3 Assessment and Plan - Assessment and Plan (Free Text) Assessment: acute exxacerbation of chronic combined systolic & diastolc chf.copd.
--- NOTE | 2017-04-07 12:28 | CP.PCM.PN ---
Subjective - Date & Time of Evaluation Date of Evaluation: 04/07/17 Time of Evaluation: 12:26 - Subjective Subjective: ok.previous note of chf is not right.mistae.different pt. cath has normal coronaries & normal lv. echo is normal. d/c all cardiac meds.no need for asa. Objective - Vital Signs/Intake and Output Vital Signs (last 24 hours): Temp Pulse Resp BP Pulse Ox 98.1 F 66 20 109/61 97 04/07/17 07:27 04/07/17 07:27 04/07/17 07:27 04/07/17 07:27 04/07/17 07:27 - Medications Medications: Current Medications Albuterol/Ipratropium (Duoneb 3 Mg/0.5 Mg (3 Ml) Ud) 3 ml INH RQ6 [facility] Last Admin: 04/07/17 07:29 Dose: 3 ml Aspirin (Aspirin Chewable) 81 mg PO DAILY [facility] Last Admin: 04/07/17 09:23 Dose: 81 mg Enoxaparin Sodium (Lovenox) 40 mg SC DAILY [facility] Last Admin: 04/07/17 09:20 Dose: 40 mg Losartan Potassium (Cozaar) 50 mg PO DAILY [facility] Last Admin: 04/07/17 09:24 Dose: 50 mg Oxycodone/Acetaminophen (Percocet 5/325 Mg Tab) 2 tab PO Q6H PRN PRN Reason: Pain, severe (8-10) Last Admin: 04/07/17 09:19 Dose: 2 tab Pantoprazole Sodium (Protonix Ec Tab) 40 mg PO DAILY [facility] Last Admin: 04/07/17 09:21 Dose: 40 mg Rosuvastatin Calcium (Crestor) 10 mg PO HS [facility] Last Admin: 04/06/17 23:21 Dose: 10 mg - Labs Labs: 04/06/17 11:43 04/06/17 11:43 PT 10.6 SECONDS (9.7-12.2) 04/05/17 12:40 INR 1.0 04/05/17 12:40 APTT 33 SECONDS (21-34) 04/05/17 12:40 - Constitutional Appears: No Acute Distress Assessment and Plan - Assessment and Plan (Free Text) Assessment: non cardiac pain. no need for cardiac w/c rx.no need for asa.
--- NOTE | 2017-04-07 13:11 | CP.PCM.PN ---
Subjective - Date & Time of Evaluation Date of Evaluation: 04/07/17 Time of Evaluation: 13:06 - Subjective Subjective: 57 Y/O MALE SEEN AND EXAMINED, DENIES ANY CP, SOB, PALPITATION, PT ADMITTED FOR CHEST PAIN RADIATING TO HIS BACK, JHONATAN NEGATIVE, CARDIAC CATH NORMAL CORONARIES AND NORMAL LV, ECHO- NORMAL, PT GIVEN RX FOR Z-PACK PER DR RILEY, D/C ALL CARDIAC MED AND ASA PER DR MCFARLAND, PT EDUCATED TO F/U W/ DR RILEY IN 2-3 DAYS , RETURN TO ED IF ANY WORSENING S/S, AGREE, VERBALIZE UNDERSTANDING. Objective - Vital Signs/Intake and Output Vital Signs (last 24 hours): Temp Pulse Resp BP Pulse Ox 98.1 F 66 20 109/61 97 04/07/17 07:27 04/07/17 07:27 04/07/17 07:27 04/07/17 07:27 04/07/17 07:27 - Medications Medications: Current Medications Albuterol/Ipratropium (Duoneb 3 Mg/0.5 Mg (3 Ml) Ud) 3 ml INH RQ6 [facility] Last Admin: 04/07/17 07:29 Dose: 3 ml Enoxaparin Sodium (Lovenox) 40 mg SC DAILY [facility] Last Admin: 04/07/17 09:20 Dose: 40 mg Losartan Potassium (Cozaar) 50 mg PO DAILY [facility] Last Admin: 04/07/17 09:24 Dose: 50 mg Oxycodone/Acetaminophen (Percocet 5/325 Mg Tab) 2 tab PO Q6H PRN PRN Reason: Pain, severe (8-10) Last Admin: 04/07/17 09:19 Dose: 2 tab Pantoprazole Sodium (Protonix Ec Tab) 40 mg PO DAILY [facility] Last Admin: 04/07/17 09:21 Dose: 40 mg - Labs Labs: 04/06/17 11:43 04/06/17 11:43 PT 10.6 SECONDS (9.7-12.2) 04/05/17 12:40 INR 1.0 04/05/17 12:40 APTT 33 SECONDS (21-34) 04/05/17 12:40
--- NOTE | 2017-04-07 14:58 | PCM.HF ---
Heart Failure Core Measure - Heart Failure Ejection Fraction: 40 % or Greater Left Ventricular Function to be assessed after discharge: Yes
--- NOTE | 2017-04-08 13:03 | CARD ---
APPROVED REPORT EKG Measurement Heart [id number] <Conclusion> Normal sinus rhythm Normal ECG
== END 2017-04-07 13:57 | disposition home or self-care (01) ==
LOC: C.ER 10:07 → C.9E 13:36 → C.6T 14:17
PROVIDERS: ADMIT Internal Medicine Nephrology; ATTEND Internal Medicine Nephrology
DX: I20.9 Angina pectoris, unspecified (principal); F17.210 Nicotine dependence, cigarettes, uncomplicated; J45.909 Unspecified asthma, uncomplicated; J40 Bronchitis, not specified as acute or chronic
CPT/HCPCS: 36415; 71020; 80053; 83880; 84484; 85025; 85610; 85730; 93005; 93306; 93458; 94150; 94640; 94770; 99284; C1769; C1887; G0378; J1200; J1644; J1650; J2270; Q9967

== ENCOUNTER 2017-07-15 06:00 | Day surgery (SDC) | payer BC ==
[2017-07-11 09:16] VITALS: BMI 30.2
[2017-07-15] MEDS ORDERED: ceFAZolin IV 2 gm in Dextrose 1 GM/50 ML BAG IVPB ONE (07:43)
[2017-07-15] MEDS ORDERED: Midazolam 2 MG/2 ML VIAL ONE (07:48)
[2017-07-15] MEDS ORDERED: Propofol 10 mg/ml Inj (20 ML) ONE (07:49)
[2017-07-15] MEDS ORDERED: Lactated Ringer's 1,000 ML IV ONE ×2 (07:50→09:15)
[2017-07-15] MEDS ORDERED: Phenylephrine 10 mg/ml Inj ONE (08:30)
[2017-07-15] MEDS ORDERED: Neostigmine Methylsulfate 3mg/3ml Syringe IV ONE (09:08)
[2017-07-15] MEDS ORDERED: Albuterol HFA 90 mcg/actuation (8 g) ONE (09:08)
[2017-07-15] MEDS: HYDROmorphone 0.5 mg/0.5 ml ISec IVP PRN ×4 (09:52→10:22)
[2017-07-15] MEDS ORDERED: Bupivacaine HCl 0.5% PF (10 ml) Inj ONE (10:16)
[2017-07-15] MEDS ORDERED: Midazolam 2 MG/2 ML VIAL IVP ONE (10:26)
--- NOTE | 2017-07-15 10:40 | PCM.ANESB2 ---
Popliteal Nerve Block - Popliteal Nerve Block Date of Procedure: 07/15/17 Anesthesiologist: Dick Pre-Procedure Diagnosis: Muscle strain right peroneal tendon Post-Procedure Diagnosis: Muscle strain right peroneal tendon Procedure Performed: Popliteal Nerve Block Right - Procedure Popliteal Nerve Block: This procedure was explained to the patient that it is for post-operative pain management. Consent was obtained after a thorough discussion with the patient regarding the benefits and possible complications of local anesthetic block of the sciatic nerve at the popliteal level. The patient was brought to the operating room and standard monitors are applied. Time-out was held with the circulating nurse to confirm the correct surgery and the appropriate block. After applying oxygen by nasal cannula and administering IV Sedation, patient's operative leg was gently raised and supported and the groove in between the biceps femoris and vastus lateralis muscles was carefully palpated. The skin approximately 8cm above the popliteal crease was then marked. The ultrasound transducer was then applied to the posterior thigh approximately 8cm above the popliteal crease in the transverse plane and the sciatic nerve before its division was visualized lateral to the popliteal artery and in between the bicep femoris and semimembranosus/semitendinosus muscles. After identification, the lateral portion of the thigh was prepped with Betadine solution three times. At this point, a # 21 gauge Stimuplex insulated 4 inch needle was inserted into pre-marked area and advanced in a perpendicular direction. The needle was inserted above the ultrasound transducer in-plane towards the sciatic nerve in a [id number] direction. Needle advancement was performed carefully under direct ultrasound visualization. After repeated negative aspiration, 20 cc of 0.5 % bupivicaine was injected. Under ultrasound guidance the local anesthetics were observed tenting the epidural sheath and surrounding the roots of the sciatic nerve. The needle was removed intact and sterile dressing was applied. The patient tolerated the popliteal nerve block well with stable vital signs and was subsequently prepared for the surgery.
[2017-07-15 11:44] VITALS: RESP 18; TEMP 97.6
[2017-07-15 12:24] VITALS: BP 122/50; PULSE 73; O2SAT 97
--- NOTE | 2017-08-10 14:15 | PCM.SURG1 ---
Surgeon's Initial Post Op Note - Surgeon's Notes Surgeon: Alexander Negrete MD Field Support Representative: Sb Vallecillo DPM Type of Anesthesia: General Endo, Block Regional Pre-Operative Diagnosis: Right ankle #1 Peroneal brevis tendon longitudinal split tear. #2 Peroneal Brevis tendon & Longus tendon tenosynovitis. #3 Peroneal Brevis intratendonous ganglion cyst Operative Findings: Right ankle #1 Peroneal brevis tendon longitudinal split tear. #2 Peroneal Brevis tendon severe tendonopathy. #3 Longus tendon tenosynovitis. #4 Peroneal Brevis intratendonous ganglion cyst Post-Operative Diagnosis: Right ankle #1 Peroneal brevis tendon longitudinal split tear. #2 Peroneal Brevis tendon severe tendonopathy. #3 Longus tendon tenosynovitis. #4 Peroneal Brevis intratendonous ganglion cyst Operation Performed: Right ankle open: #1 Peroneal Brevis longitudinal tear primary repair. #2 Debridement Peroneal Brevis and Peroneal Longus tendonopathy /tenosynovitis. #3 resection intratendonous ganglion cyst. #4 placement in short leg splint Specimen/Specimens Removed: specimen= peroneal brevis intratendonous ganglion and tendonopathy tissue sent to pathology. tourniquet time=63 min. complications=none. implants = #2.0 fiberwire suture & #1 Vicryl suture Estimated Blood Loss: EBL {In ML}: 5 Blood Products Given: N/A Drains Used: No Drains Post-Op Condition: Good Date of Surgery/Procedure: 07/15/17 Time of Surgery/Procedure: 10:00
--- NOTE | 2017-08-11 00:56 | OP ---
PROCEDURE DATE: 07/15/2017 PREOPERATIVE DIAGNOSES: Right ankle: 1. Peroneal brevis tendon longitudinal split tear. 2. Peroneal brevis tendon and longus tendon tenosynovitis. 3. Peroneal brevis intratendinous ganglion cyst. POSTOPERATIVE DIAGNOSIS: Right ankle: 1. Peroneal brevis tendon longitudinal split tear. 2. Peroneal brevis tendon severe tendinopathy. 3. Peroneal longus tenosynovitis and tendinopathy. 4. Peroneal brevis intratendinous ganglion cyst. PROCEDURE: Right ankle open: 1. Peroneal brevis longitudinal tear primary repair. 2. Debridement and debulking of peroneal brevis and peroneal longus tendinopathy/tenosynovitis. 3. Resection of intratendinous ganglion cyst. 4. Placement in short leg cyst. SURGEON: Alexander Negrete MD COMMERCIAL RELATIONSHIP MANAGER: Kike Quiñones DPM JUSTIFICATION FOR COMMERCIAL RELATIONSHIP MANAGER: Dr. Kike Quiñones is a board certified doctor of podiatry whose presence was an absolute necessity as a skilled surgical assistance, supervise skill surgical assistance with positioning of the patient, positioning of extremity, management of the surgical ellison, retraction of vascular structures, exposure and identification of tendons and tissue, debulking and debridement of peroneal brevis and peroneal longus tendons, primary repair of peroneal brevis tendon, repair of peroneal retinaculum and debridement of peroneal longus tendon, resection of intratendinous ganglion cyst, wounds closure, placement of short leg splint. Dr. Kike Quiñones was present for the entire case and was an absolute necessity for successful completion of the procedure. TYPE OF ANESTHESIA: General endotracheal anesthesia with a postoperative regional nerve block placed by anesthesia staff in the PACU. ESTIMATED BLOOD LOSS: 5 mL SPECIMEN: Tendinopathy tissue and tenosynovitis tissue, sent to pathology. DRAINS: None. COMPLICATIONS: None. IMPLANTS: A #2 0.5 FiberWire suture and #1 Vicryl suture. TOURNIQUET TIME: 63 minutes. DISPOSITION: The patient was extubated, transferred to PACU in stable condition and tolerated procedure well. INDICATIONS OF SURGERY: The patient is a 57-year-old male with a past medical history significant for hepatitis type C, asthma, who presents to the office for first time on 06/16/2017, as a referral from his primary care physician of the right ankle pain and swelling localized to the lateral aspect of the ankle for the past three months. The patient states that he has had multiple twisting episodes to the right ankle as young man with pain that had resolved with each event, and for the most part, he did not have much pain up until three months ago. He stated that he developed progressive and increasing lateral ankle pain of sudden onset. He has had multiple tripping and twisting episodes in a row in the past three months and attributes to them as all being traumatic events. Since then his pain has become worse and now he is having difficulty at work. 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 The pain wakes him at night and has forced him to bend in all recreational walking and sports. He was prescribed Percocet by his primary care physician that was the only treatment that alleviated his pain. On evaluation in the office, his pain was rated as 6/10 and his x-rays taken in the office were found to be normal. The pain was worse with any resisted eversion and walking more than a few feet. On physical examination his pain is localized to the lateral malleolus in the peroneal tendons and he had pain with any resisted eversion of the ankle. He was referred for an MRI, which was done at [facility] on 06/17/2017 and read as: 1. Peroneal brevis tendinopathy with 15 mm longitudinal split tear, no subluxation/instability. 2. Intrasubstance ganglion within tear. 3. Peroneus longus tenosynovitis. 4. Thickened ATFL ligament. On his first visit in the office in the office he was placed in a fracture boot as initial first line treatment for his pain and presentation in the office after review of the MRI treatment options were then discussed further with the patient including serial casting and time off from work from versus surgical primary repair. 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 It was indicated for right ankle peroneus brevis primary repair of longitudinal tear with debridement and debulking as indicated and needed of both the peroneal brevis and peroneal longus tendons as well as resection of the intratendinous ganglion cyst seen on MRI. His ATFL has 1 to 2 instability and was not causing him pain, he was not having significant anterior drawer or talar tilt and the patient did not wish to proceed with lateral ligament reconstruction or stabilization procedure, which is not warranted at this time. The risks, benefits, and alternatives to procedure was discussed in length with the patient with the risks included, not limited to infection, neurovascular damage, need for further surgery, development of graft pain and disability, developed a blood clot including DVT and PE, failure of repair, development of chronic pain, stiffness, inability to return to preinjury level of activity and job work, anesthesia reactions, cardiopulmonary perioperative compromise. After answering all of his questions, the patient stated he understood the risk and wishes to proceed with surgery. I went over multiple MRI images as well as surgical animation videos and diagnoses animation videos and stated that he understood the procedure as well as the diagnosis. I reviewed at length with him the postop rehab protocol including initial four weeks of immobilization maritime pilot in splint or boot as well as nonweightbearing followed by reconditioning with physical therapy and he stated that he understood the need for compliance, the rehab protocol in order to maximize the chances of having successful outcome after the surgery. He was referred to his primary care physician, Dr. Jurado for and the procedure was scheduled at [facility] on 07/15/2017. DESCRIPTION OF PROCEDURE: The patient was identified in the preoperative holding area and the right ankle was marked for surgery. Once again as described above; the risks, benefits, and alternatives of the procedure were discussed at length with the patient and informed consent was obtained. After brief discussion with anesthesia staff, perioperative IV antibiotics in the form of 2 g of Ancef were administered and the patient was taken to the operating room and placed on well-padded operating table for all bony prominences , superficial neurovascular structures well padded. An initial time-out was done with the surgeon, anesthesia staff, and OR staff and all are in agreement with the patient, procedure to be done, and extremity to be operated on. Tourniquet was placed high on the right thigh and set to 300 mmHg. The right lower extremity was then prepped and draped in standard sterile fashion and was exsanguinated. A final time-out was done with the surgeon, anesthesia staff, and OR staff, and all are in agreement with the patient, procedure to be done and extremity to be operated on and the tourniquet was inflated for a total tourniquet time of 63 minutes. An incision overlying the posterolateral aspect of the distal fibula curving around the distal fibula as a hockey stick incision following the course of peroneal tendons was developed measuring approximately 5 cm total in length. Incision was made through skin down to the subcutaneous tissue and maintaining good hemostasis down to the level of the peroneal retinaculum. The peroneal retinaculum was sharply incised and tagged for future repair. First encounter was the peroneus longus tendon, which had significant inflamed synovitis tissue surrounding the tendon, deep to the peroneal longus tendon, which was retracted laterally was the peroneal brevis tendon which exhibited severe tendinopathy and in width represented approximately 2 to 2.5 times the size of the peroneal longus tendon. The peroneal tendons even with retinaculum incised and retracted did not exhibit significant instability. Attention was first turned towards the peroneal longus tendon with the use of the clamp and small scissors, a debridement of the tenosynovitis of the peroneal longus tendon was carried out maintaining good hemostasis back to normal healthy peroneal longus tendon tissue. Attention was then turned towards addressing the peroneal brevis tendon, which appeared to be thickened with severe tendinopathy and needed significant debulking to allow the tendons to glide normally within the groove. An incision was made further to the longitudinal split tear that was seen at the lateral aspect of the peroneal tendon exposing the underlying intratendinous ganglion, which was resected in its completion. The tendinopathy tissue that did not appear to have normal tendon quality to it was debulked and debrided and sent as specimen to pathology including the intratendinous ganglion cyst. Once a smooth contour to the normal tendon looking tissue was established and the tendon itself was debulked, a #2 0.5 FiberWire suture and #1 Vicryl suture were used to perform a primary repair of the peroneal brevis tendon tissue. Once this was carried out in satisfaction, the wound was copiously irrigated and the peroneal retinaculum was repaired with the use of #1 Vicryl suture. Once this was done in satisfaction, the wound was copiously irrigated again and reapproximation and closing of wound was carried out with #1 Vicryl suture for deep tissue followed by 2-0 Vicryl suture for subcutaneous tissue followed by lacy for skin. Sterile dressings were applied followed by layer sterile cast padding from the toes up to the followed by placement in a posterior splint, a U splint and overlying Yves wrap. Once the splint harden and the patient was transferred to PACU in stable condition after being extubated from anesthesia. DISPOSITION: The patient is instructed to keep the splint and dressing clean, dry, and intact until he follows up in the office at [facility] and already has postoperative appointment set up. He will contact me directly with any questions or complaints. He is given prescription for Percocet for pain control. He was instructed to be non-weightbearing and ice and elevate the right ankle above the level of his heart as much as possible. Alexander Negrete MD
== END 2017-07-15 12:10 | disposition home or self-care (01) ==
LOC: C.SDS 06:00
PROVIDERS: ATTEND Student in an Organized Health Care Education/Training Program
DX: S86.311D Strain of muscle(s) and tendon(s) of peroneal muscle group at lower leg level, right leg, subsequent encounter (principal); S93.10 Unspecified subluxation and dislocation of toe; M67.471 Ganglion, right ankle and foot; J45.909 Unspecified asthma, uncomplicated; F17.210 Nicotine dependence, cigarettes, uncomplicated; Z86.19 Personal history of other infectious and parasitic diseases
CPT/HCPCS: 27630; 28200; 88305; J0690; J1170; J2250; J2370; J2704; J2710; J3010; J7120

== ENCOUNTER 2017-12-09 08:47 | Day surgery (SDC) | payer BC ==
[2017-12-06 10:28] VITALS: BMI 29.5
[2017-12-09] MEDS ORDERED: Lactated Ringer's 1,000 ML IV ONE ×2 (10:30→12:00)
[2017-12-09] MEDS ORDERED: ceFAZolin IV 2 gm in Dextrose 2 GM/50 ML BAG IVPB ONE (10:39)
--- NOTE | 2017-12-09 12:55 | PCM.SURG1 ---
Surgeon's Initial Post Op Note - Surgeon's Notes Surgeon: Alexander Negrete MD Die Maker Stamping: Aubrie Majano PA-C Type of Anesthesia: General Endo, Block Regional Pre-Operative Diagnosis: Right knee #1 osteochondral injury medial femoral condyle/ trochlea. #2 medial meniscal tear. #3 lateral meniscal tear. #4 partial ACL tear. #5 synovitis Operative Findings: Right knee #1 osteochondral injury medial femoral condyle ( [id number])/ trochlea ([id number]). #2 medial meniscal tear (peripheral menisco- capsular seperation). #3 lateral meniscal tear (free edge tear/ peripheral tear ). #4 partial / near complete ACL tear scarred into PCL. #5 synovitis Post-Operative Diagnosis: Right knee #1 osteochondral injury medial femoral condyle ([id number])/ trochlea ([id number]). #2 medial meniscal tear (peripheral menisco-capsular seperation). #3 lateral meniscal tear (free edge tear/ peripheral tear). #4 partial / near complete ACL tear scarred into PCL. #5 synovitis/ hypertrophic fat pad Operation Performed: Right knee arthroscopic #1 all inside medial meniscal repair. #2 all inside lateral meniscal repair. #3 chondroplasty & microfracture OC lesions trochlea & MFC. #4 synovectomy/sharan fat pad. #5 PRP injection Specimen/Specimens Removed: specimen= none. complications= none. tourniquet time= 0min. implants= Linvatec all inside sequent meniscal repair system, 6 implants for MMR (2 kits opened), 4 implants for LMR (1 kit opened) Estimated Blood Loss: EBL {In ML}: 3 Blood Products Given: N/A Drains Used: No Drains Post-Op Condition: Good Date of Surgery/Procedure: 12/09/17 Time of Surgery/Procedure: 12:58
[2017-12-09] MEDS ORDERED: Bupivacaine HCl 0.25% PF (10 ml) Inj ONE (13:00)
--- NOTE | 2017-12-09 13:29 | PCM.ANESB7 ---
Adductor Canal Block - Adductor Canal Block Date of Procedure: 12/09/17 Anesthiologist: Dick Pre-Procedure Diagnosis: Right meniscal tear Post-Procedure Diagnosis: Right meniscal tear Procedure Performed: Adductor Canal Block Right - Procedure Adductor Canal Block: The procedure was explained to the patient that it is for the post-operative pain management. Consent was obtained after a thorough discussion with the patient regarding the benefits and possible complications of local anesthetic adductor canal block of the femoral nerve. Standard monitors, as defined by the ASA, were applied to the patient. Time-out was held with the circulating nurse to confirm the appropriate block. After applying supplemental oxygen and administering IV Sedation as needed, the patient was placed in supine position with and the operative leg was flexed slightly at the knee and externally rotated as needed, and was kept anatomically stable. The mid-thigh of the ___ lower extremity was exposed. The ultrasound transducer was then applied transversely along the medial aspect, about midway down the thigh and the femoral artery and vein were identified in appropriate relation with the sartorius muscle. At this time, the femoral nerve was visualized lateral to the femoral artery within the canal. After thorough identification, this area area was prepped with Chloroprep solution three times and 1 % Lidocaine was injected subcutaneously for topical anesthesia. At this point, a #22 gauge Stimuplex 4-inch needle was inserted in-plane in a [id number] orientation, and advanced toward the femoral nerve. Advancement was performed carefully under direct ultrasound visualization. . After negative aspiration, 20 cc of 0.25 % bupivicaine was injected. Under ultrasound guidance the local anesthetics were observed spreading around the femoral nerve. The needle was removed intact and sterile dressing was applied. The patient had stable vital signs, was conscious and in no apparent distress. The patient tolerated the femoral nerve block well with stable vital signs and was prepared for subsequent surgery
[2017-12-09] MEDS ORDERED: Albuterol 0.083% Inhal Sol (2.5 mg/3 mL) UD INH STA (14:13)
[2017-12-09 15:56] VITALS: TEMP 97
[2017-12-09 16:27] VITALS: BP 134/82; PULSE 65; RESP 12; O2SAT 93
== END 2017-12-09 16:28 | disposition home or self-care (01) ==
LOC: C.SDS 08:47
PROVIDERS: ATTEND Student in an Organized Health Care Education/Training Program
DX: M23.231 Derangement of other medial meniscus due to old tear or injury, right knee (principal); M23.261 Derangement of other lateral meniscus due to old tear or injury, right knee; M67.861 Other specified disorders of synovium, right knee; M94.261 Chondromalacia, right knee
CPT/HCPCS: 29883; 64447; J0131; J0171; J0690; J1170; J7120

== ENCOUNTER 2018-01-27 11:46 | Emergency (ER) | payer BC ==
[2018-01-27 11:58] VITALS: BMI 30.2
[2018-01-27 12:02] VITALS: TEMP 98
[2018-01-27] MEDS ORDERED: Sodium Chloride 0.9% 1,000 ML IV STA (12:26)
[2018-01-27] MEDS ORDERED: HYDROmorphone 1 mg/ml ISec IVP STA ×3 (12:26→15:51)
[2018-01-27] MEDS ORDERED: Sodium Chloride 0.9% 1,000 ML ONE (12:39)
[2018-01-27] MEDS ORDERED: HYDROmorphone 1 mg/ml ISec ONE ×2 (12:39→15:37)
--- NOTE | 2018-01-27 12:52 | RAD ---
PROCEDURE: CHEST RADIOGRAPH, 1 VIEW HISTORY: epigastric abd pain COMPARISON: 12/06/2017 FINDINGS: LUNGS: Clear. PLEURA: No pneumothorax or pleural fluid seen. CARDIOVASCULAR: Normal. OSSEOUS STRUCTURES: No significant abnormalities. VISUALIZED UPPER ABDOMEN: Normal. OTHER FINDINGS: None. IMPRESSION: No active disease.
[2018-01-27 13:01] LABS: BASO % 0.5 % (0.0-2.0); EOS # 0.1 K/uL (0.0-0.7); EOS % 1.2 % (0.0-4.0); HEMOGLOBIN 16.2 g/dL (12.0-18.0); LYMPH # 3.7 K/uL (1.0-4.3); LYMPH % 36.8 % (20.0-40.0); MEAN CELL VOLUME 87.1 fL (80.0-94.0); MEAN CORPUSCULAR HEMOGLOBIN 30.7 pg (27.0-31.0); MEAN CORPUSCULAR HGB CONC 35.2 g/dL (33.0-37.0); MEAN PLATELET VOLUME 8.2 fL (7.2-11.7); MONO # 0.8 K/uL (0.0-0.8); MONO % 7.8 % (0.0-10.0); NEUT # 5.4 K/uL (1.8-7.0); NEUT % 53.7 % (50.0-75.0); NRBC % 0.1 % (0.0-2.0); RBC 5.3 Mil/uL (4.40-5.90); RED CELL DISTRIBUTION WIDTH 13.8 % (11.5-14.5)
[2018-01-27 13:09] LABS: INR 0.9; PROTHROMBIN TIME 10.3 SECONDS (9.7-12.2)
[2018-01-27 13:16] LABS: ALB/GLOB RATIO 1.3 (1.0-2.1); ALBUMIN 4.2 g/dL (3.5-5.0); ALT/SGPT 36 U/L (21-72); AST/SGOT 26 U/L (17-59); BLOOD UREA NITROGEN 12 mg/dL (9-20); CALCIUM 9.1 mg/dl (8.6-10.4); GFR AFRICAN-AMERICAN > 60; GFR NON-AFRICAN AMERICAN > 60; LIPASE 47 U/L (23-300)
--- NOTE | 2018-01-27 13:41 | C.PDOC ---
History Of Present Illness 57 year old male presents to the ED for evaluation of epigastric abdominal pain which began 3 days ago. Patient denies fever, chills, shortness of breath, nausea and vomiting. Time Seen by Provider: 01/27/18 12:04 Chief Complaint (Nursing): Abdominal Pain History Per: Patient History/Exam Limitations: no limitations Onset/Duration Of Symptoms: Days (3) Current Symptoms Are (Timing): Still Present Location Of Pain/Discomfort: Epigastric Radiation Of Pain To:: None Quality Of Discomfort: "Pain" Associated Symptoms: denies: Fever, Chills, Nausea, Vomiting Additional History Per: Patient Past Medical History Reviewed: Historical Data, Nursing Documentation, Vital Signs Vital Signs: Last Vital Signs Temp 98.0 F 01/27/18 11:57 Pulse 74 01/27/18 18:25 Resp 18 01/27/18 18:25 BP 114/73 01/27/18 18:25 Pulse Ox 98 01/27/18 18:26 - Medical History PMH: Anxiety, Asthma, Fractures, Peripheral Edema, Pneumonia (2016) Denies: Chronic Kidney Disease Surgical History: Endoscopy Family History: States: Unknown Family Hx - Social History Hx Alcohol Use: No Hx Substance Use: No - Immunization History Hx Tetanus Toxoid Vaccination: No Hx Influenza Vaccination: No Hx Pneumococcal Vaccination: No Review Of Systems Constitutional: Negative for: Fever, Chills Respiratory: Negative for: Shortness of Breath Gastrointestinal: Positive for: Abdominal Pain (epigastric ). Negative for: Nausea, Vomiting Physical Exam - Physical Exam Appears: Non-toxic, Other (uncomfortable ) Skin: Normal Color, Warm, Dry Head: Atraumatic, Normacephalic Eye(s): bilateral: Normal Inspection Oral Mucosa: Moist Neck: Supple Chest: Symmetrical, No Deformity, No Tenderness Cardiovascular: Rhythm Regular, No Murmur Respiratory: Normal Breath Sounds, No Rales, No Rhonchi, No Wheezing Gastrointestinal/Abdominal: Soft, Tenderness (epigastric ), No Guarding, No Rebound Extremity: Normal ROM, Capillary Refill (less than 2 seconds ) Neurological/Psych: Oriented x3, Normal Speech, Normal Cognition ED Course And Treatment - Laboratory Results Result Diagrams: 01/27/18 12:56 01/27/18 12:56 O2 Sat by Pulse Oximetry: 98 (on RA) Pulse Ox Interpretation: Normal - Other Rad CXR X-Ray: Interpreted by Me, Viewed By Me, Read By Radiologist Interpretation: PROCEDURE: CHEST RADIOGRAPH, 1 VIEW. HISTORY: epigastric abd pain. COMPARISON: 12/06/2017. FINDINGS: LUNGS: Clear. PLEURA: No pneumothorax or pleural fluid seen. CARDIOVASCULAR: Normal. OSSEOUS STRUCTURES: No significant abnormalities. VISUALIZED UPPER ABDOMEN: Normal. OTHER FINDINGS: None. IMPRESSION: No active disease. - CT Scan/US Abdomen US Other Rad Studies (CT/US): Interpreted By Me, Read By Radiologist, Radiology Report Reviewed CT/US Interpretation: HISTORY: upper abd pain. COMPARISON: None available. TECHNIQUE: Sonographic evaluation of the right upper quadrant of the abdomen. FINDINGS: LIVER: Measures 16.1 cm in length. Echogenic liver may be seen in setting of hepatic parenchymal disease or fatty infiltration. No focal hepatic mass identified. The main portal vein appears patent with normal directional flow. No intrahepatic bile duct dilatation. GALLBLADDER: No gallstones. No gallbladder wall thickening or pericholecystic edema. Negative sonographic Sevilla's sign as assessed by the scratcher tender. COMMON BILE DUCT: Measures 3 mm. PANCREAS: Not well-visualized. RIGHT KIDNEY: Measures 12.2 x 5.0 x 5.4 cm. No obstructing calculus or hydronephrosis identified. AORTA: Limited visualization appears grossly unremarkable. IVC: Limited visualization appears grossly unremarkable. OTHER FINDINGS: None . IMPRESSION: Echogenic liver may be seen in setting of hepatic parenchymal disease or fatty infiltration. CT A/P Other Rad Studies (CT/US): Interpreted By Me, Read By Radiologist, Radiology Report Reviewed CT/US Interpretation: PROCEDURE: CT Abdomen and Pelvis with contrast. HISTORY : upper abdominal pain. COMPARISON: None. TECHNIQUE: Contrast dose: Visipaque 320, 100 cc. Radiation dose: Total exam DLP = 1239.83 mGy-cm. This CT exam was performed using one or more of the following dose reduction techniques: Automated exposure control, adjustment of the mA and/or kV according to patient size, and/or use of iterative reconstruction technique. FINDINGS: LOWER THORAX: Unremarkable. 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 LIVER: Mild diffuse density seen throughout the liver compatible with hepatic steatosis. No discrete mass or intrahepatic biliary duct dilatation is appreciated. GALLBLADDER AND BILE DUCTS : Gallbladder is contracted and otherwise unremarkable. PANCREAS: Unremarkable. No gross lesion or ductal dilatation. SPLEEN: Unremarkable. ADRENALS: Unremarkable. No mass. KIDNEYS AND URETERS: No hydronephrosis, radiodense urolithiasis or perinephric reaction is appreciate bilaterally. No discrete renal mass is seen either. There is a retro aortic left renal vein. VASCULATURE: Unremarkable. No aortic aneurysm. BOWEL: The lack of oral contrast limits evaluation the stomach and bowel for this time we distended with retained food and fluid. The bowel is nonobstructive. Most of the bowel appears collapsed with rare sigmoid diverticular. No diverticulitis pattern grossly evident. APPENDIX: Normal appendix. PERITONEUM: Unremarkable. No free fluid. No free air. LYMPH NODES: Unremarkable. No enlarged lymph nodes. BLADDER: Unremarkable. REPRODUCTIVE: Breast glands enlarged to 6.4 cm greatest transverse dimension. BONES: No acute fracture. OTHER FINDINGS: None. IMPRESSION: No definitive acute abdominal findings as discussed above. Lack of oral contrast limits evaluation of the gastrointestinal tract. The stomach is mildly distended with retained food and fluid. Hepatic steatosis identified. Medical Decision Making Medical Decision Making: Bloodwork, urinalysis, CXR, Abdomen US, CT A/P, and EKG ordered and reviewed. Patient received Dilaudid IVP, Protonix IVP, and IV Fluids. Patient states he is still in pain. Case discussed with Dr. Jose Ramon Manjarrez, who agrees to admit the patient for intractable abdominal pain. Patient states he no longer wishes to remain in the hospital and chooses to sign out Against Medical Advice. This patient is choosing to leave against medical advice. I have personally explained to the patient that choosing to do so may result in permanent bodily harm or . I have discussed at great length that without further evaluation and monitoring there may be unforeseen circumstances and/or deterioration causing permanent bodily harm or as a result of their choice. The patient is alert, oriented, and shows the mental capacity to make clear decisions regarding the patients health care at this time. The patient continues to wish to leave against medical advice. In light of the patients decision to leave AMA, follow-up has been arranged and the patient is aware of the importance of following up as instructed. The patient has been advised that they should return to the ED immediately if they change their mind at any time, or if their condition begins to change or worsen in any way. Disposition - Disposition Referrals: Jim Jurado MD [Staff Provider] - Disposition: AGAINST MEDICAL ADVICE Disposition Time: 18:13 Condition: FAIR Additional Instructions: Follow up with Dr.Mangia ZAVALA. Return to ED immediately if feel worse. 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 - Scribe Statement The provider has reviewed the documentation as recorded by the Scribe (Amisha Manjarrez) All medical record entries made by the Scribe were at my direction and personally dictated by me. I have reviewed the chart and agree that the record accurately reflects my personal performance of the history, physical exam, medical decision making, and the department course for this patient. I have also personally directed, reviewed, and agree with the discharge instructions and disposition.
[2018-01-27 14:05] LABS: SQUAMOUS EPITHIAL < 1 /hpf (0-5); URINE BILIRUBIN NEGATIVE (NEGATIVE); URINE BLOOD NEGATIVE (NEGATIVE); URINE CLARITY Clear (Clear); URINE COLOR Yellow (YELLOW); URINE GLUCOSE (UA) NORMAL (Normal); URINE LEUKOCYTE ESTERASE NEG Leu/uL (Negative); URINE NITRATE NEGATIVE (NEGATIVE); URINE PROTEIN NEGATIVE (NEGATIVE); URINE UROBILINOGEN NORMAL mg/dL (0.2-1.0)
--- NOTE | 2018-01-27 15:27 | US ---
HISTORY: upper abd pain COMPARISON: None available. TECHNIQUE: Sonographic evaluation of the right upper quadrant of the abdomen. FINDINGS: LIVER: Measures 16.1 cm in length. Echogenic liver may be seen in setting of hepatic parenchymal disease or fatty infiltration. No focal hepatic mass identified. The main portal vein appears patent with normal directional flow. No intrahepatic bile duct dilatation. GALLBLADDER: No gallstones. No gallbladder wall thickening or pericholecystic edema. Negative sonographic Sevilla's sign as assessed by the category manager. COMMON BILE DUCT: Measures 3 mm. PANCREAS: Not well-visualized. RIGHT KIDNEY: Measures 12.2 x 5.0 x 5.4 cm. No obstructing calculus or hydronephrosis identified. AORTA: Limited visualization appears grossly unremarkable. IVC: Limited visualization appears grossly unremarkable. OTHER FINDINGS: None . IMPRESSION: Echogenic liver may be seen in setting of hepatic parenchymal disease or fatty infiltration.
[2018-01-27 15:37] VITALS: RESP 18
[2018-01-27] MEDS ORDERED: Iodixanol 320 MG/ML 100 ML BOTTLE IV ONE (16:44)
[2018-01-27 17:06] VITALS: O2SAT 98
--- NOTE | 2018-01-27 17:47 | CT ---
PROCEDURE: CT Abdomen and Pelvis with contrast HISTORY: upper abdominal pain COMPARISON: None. TECHNIQUE: Contrast dose: Visipaque 320, 100 cc Radiation dose: Total exam DLP = 1239.83 mGy-cm. This CT exam was performed using one or more of the following dose reduction techniques: Automated exposure control, adjustment of the mA and/or kV according to patient size, and/or use of iterative reconstruction technique. FINDINGS: LOWER THORAX: Unremarkable. 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 LIVER: Mild diffuse density seen throughout the liver compatible with hepatic steatosis. No discrete mass or intrahepatic biliary duct dilatation is appreciated. GALLBLADDER AND BILE DUCTS: Gallbladder is contracted and otherwise unremarkable. PANCREAS: Unremarkable. No gross lesion or ductal dilatation. SPLEEN: Unremarkable. ADRENALS: Unremarkable. No mass. KIDNEYS AND URETERS: No hydronephrosis, radiodense urolithiasis or perinephric reaction is appreciate bilaterally. No discrete renal mass is seen either. There is a retro aortic left renal vein. VASCULATURE: Unremarkable. No aortic aneurysm. BOWEL: The lack of oral contrast limits evaluation the stomach and bowel for this time we distended with retained food and fluid. The bowel is nonobstructive. Most of the bowel appears collapsed with rare sigmoid diverticular. No diverticulitis pattern grossly evident. APPENDIX: Normal appendix. PERITONEUM: Unremarkable. No free fluid. No free air. LYMPH NODES: Unremarkable. No enlarged lymph nodes. BLADDER: Unremarkable. REPRODUCTIVE: Breast glands enlarged to 6.4 cm greatest transverse dimension. BONES: No acute fracture. OTHER FINDINGS: None. IMPRESSION: No definitive acute abdominal findings as discussed above. Lack of oral contrast limits evaluation of the gastrointestinal tract. The stomach is mildly distended with retained food and fluid. Hepatic steatosis identified.
[2018-01-27 18:34] VITALS: BP 114/73; PULSE 74
--- NOTE | 2018-01-30 09:34 | CARD ---
APPROVED REPORT EKG Measurement Heart [id number] <Conclusion> Normal sinus rhythm Normal ECG
== END 2018-01-27 18:32 | disposition left against medical advice (07) ==
LOC: C.ER 11:46
DX: R10.9 Unspecified abdominal pain (principal); R60.9 Edema, unspecified
CPT/HCPCS: 71045; 74177; 76705; 80053; 81001; 83605; 83690; 84484; 85025; 85610; 85730; 96361; 96374; 96375; 96376; 99285; C9113; J1170; J7040; Q9967

== ENCOUNTER 2018-02-24 05:40 | Day surgery (SDC) | payer BC ==
[2018-02-14 13:56] VITALS: BMI 31.0
[2018-02-24] MEDS ORDERED: Propofol 10 mg/ml Inj (20 ML) ONE ×2 (07:58→08:16)
[2018-02-24] MEDS ORDERED: Midazolam 2 MG/2 ML VIAL ONE (07:58)
[2018-02-24] MEDS ORDERED: Rocuronium 10 mg/ml (5 ml) ONE ×2 (08:02→11:04)
[2018-02-24] MEDS ORDERED: ceFAZolin 1 gm in NS 2 GM/200 ML BAG IVPB ONE (08:02)
[2018-02-24] MEDS ORDERED: Succinylcholine Chloride 20 mg/ml Syr (5 ml) IV ONE (08:02)
[2018-02-24] MEDS ORDERED: Neostigmine Methylsulfate 3mg/3ml Syringe IV ONE (11:30)
[2018-02-24] MEDS ORDERED: Bupivacaine 0.25% Inj(30mL) ONE ×2 (12:02→13:05)
[2018-02-24] MEDS ORDERED: Lidocaine Hydrochloride 5 ML INJ ONE (12:03)
[2018-02-24] MEDS: HYDROmorphone 0.5 mg/0.5 ml ISec IVP PRN ×4 (12:15→13:05)
[2018-02-24] MEDS ORDERED: HYDROmorphone 1 mg/ml ISec ONE ×5 (12:16→13:26)
--- NOTE | 2018-02-24 12:29 | PCM.ANESB7 ---
Adductor Canal Block - Adductor Canal Block Date of Procedure: 02/24/18 Anesthiologist: sarita Pre-Procedure Diagnosis: right OA Procedure Performed: Adductor Canal Block Right - Procedure Adductor Canal Block: The procedure was explained to the patient that it is for the post-operative pain management. Consent was obtained after a thorough discussion with the patient regarding the benefits and possible complications of local anesthetic adductor canal block of the femoral nerve. Standard monitors, as defined by the ASA, were applied to the patient. Time-out was held with the circulating nurse to confirm the appropriate block. After applying supplemental oxygen and administering IV Sedation as needed, the patient was placed in supine position with and the operative leg was flexed slightly at the knee and externally rotated as needed, and was kept anatomically stable. The mid-thigh of the __ right lower extremity was exposed. The ultrasound transducer was then applied transversely along the medial aspect, about midway down the thigh and the femoral artery and vein were identified in appropriate relation with the sartorius muscle. At this time, the femoral nerve was visualized lateral to the femoral artery within the canal. After thorough identification, this area area was prepped with Chloroprep solution three times and 1 % Lidocaine was injected subcutaneously for topical anesthesia. At this point, a #22 gauge Stimuplex 4-inch needle was inserted in-plane in a [id number] orientation, and advanced toward the femoral nerve. Advancement was performed carefully under direct ultrasound visualization. After negative aspiration, ___5__cc of ___.25__% ____bupivaine was injected and this was followed with __25____ cc of ___.25____ % bupivaine . Under ultrasound guidance the local anesthetics were observed spreading around the femoral nerve. The needle was removed intact and sterile dressing was applied. The patient had stable vital signs, was conscious and in no apparent distress. The patient tolerated the femoral nerve block well with stable vital signs and was prepared for subsequent surgery
[2018-02-24] MEDS ORDERED: Oxycodone/Acetaminophen 5/325 mg Tab PO PRN (12:32)
[2018-02-24] MEDS ORDERED: HYDROmorphone 1 mg/ml ISec IVP ONE (13:30)
[2018-02-24 15:20] VITALS: RESP 16; TEMP 97.9; O2SAT 95
[2018-02-24 16:48] VITALS: BP 115/61; PULSE 82
--- NOTE | 2018-03-04 09:40 | PCM.SURG1 ---
Surgeon's Initial Post Op Note - Surgeon's Notes Surgeon: Alexander Negrete MD Bevel [employer] Stoner And Polisher: Lori Salmeron PA-C Type of Anesthesia: General Endo, [facility] Pre-Operative Diagnosis: Right knee: #1 large chondral defect/ OCD trochlea. # 2 large chondral defect/ OCD medial femoral condyle. #3 complete ACL tear w/ instability. #4 medial meniscal tear. #5 lateral meniscal tear. #6 synovitis. #7 s/p diagnostic arthroscopy w/ medial and lateral meniscal repairs , extensive synovectomy 12/09/17 Operative Findings: Right knee: #1 large chondral defect/ OCD trochlea ( measuring 9x12mm). #2 large chondral defect/ OCD medial femoral condyle ( measuring 7x7mm at weight bearing zone of MFC). #3 complete ACL tear w/ instability. #4 medial meniscal tear (repair intact, secondary small tear at periphery). #5 lateral meniscal tear (repair intact, small free edge new tear) . #6 synovitis. #7 s/p diagnostic arthroscopy w/ medial and lateral meniscal repairs , extensive synovectomy 12/09/17. #8 adhesions Post-Operative Diagnosis: Right knee: #1 large chondral defect/ OCD trochlea ( measuring 9x12mm). #2 large chondral defect/ OCD medial femoral condyle ( measuring 7x7mm at weight bearing zone of MFC). #3 complete ACL tear w/ instability. #4 medial meniscal tear (repair intact, secondary small tear at periphery). #5 lateral meniscal tear (repair intact, small free edge new tear) . #6 synovitis. #7 s/p diagnostic arthroscopy w/ medial and lateral meniscal repairs , extensive synovectomy 12/09/17. #8 adhesions Operation Performed: Right knee: #1 open osteochondral allograft transplant to trochlea chondral defect. #2 open osteochondral allograft transplant to medial femoral condyle chondral defect. #3 arthroscopic assisted ACL reconstruction w / allograft HS. #4 arthroscopic all inside medial meniscal repair. #5 arthroscopic partial lateral menisectomy. #6 arthroscopic extensive synovectomy / lysis of adhesions. #7 arthroscopic intra-articular PRP injection Specimen/Specimens Removed: specimen= none. complications= none. tourniquet time= 0min. Implants= #1 Arthrex: tight rope button for femoral sided fixation of ACL graft, [id number] bio-composite delta screw for tibial sided fixaiton of ACL graft, [id number] bio-compression screw for MFC OA fixation. #2 grafts: 10mm femoral osteochondral allograft cores (x2), semitT allograft tendon (x2). #3 [facility] sequ[facility] meniscal repair system, 4 implants/1kit used for MMR Estimated Blood Loss: EBL {In ML}: 20 Blood Products Given: N/A Drains Used: No Drains Post-Op Condition: Good Date of Surgery/Procedure: 02/24/18 Time of Surgery/Procedure: 12:00
--- NOTE | 2018-03-04 15:52 | OP ---
PROCEDURE DATE: 02/24/2018 PREOPERATIVE DIAGNOSES: Right knee: 1. 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 2. Large chondral defect/osteochondral defect to medial femoral condyle. 3. Complete anterior cruciate ligament tear with instability. 4. Medial meniscal tear. 5. Lateral meniscal tear. 6. Synovitis. 7. Status post diagnostic arthroscopy with medial and lateral meniscal repairs, extensive synovectomy on 12/09/2017. POSTOPERATIVE DIAGNOSES: Right Knee: 1. 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 2. Large chondral defect/osteochondral defect to medial femoral condyle (measuring 7 mm x 7 mm at weightbearing zone of medial femoral condyle). 3. Complete anterior cruciate ligament tear with instability. 4. Medial meniscal tear (previous repair intact, secondary small tear at periphery, posterior horn). 5. Lateral meniscal tear (previous repair intact, small free edge white-white zone new tear at mid body). 6. Synovitis. 7. Status post diagnostic arthroscopy with medial and lateral meniscal repairs, extensive synovectomy on 12/09/2017. 8. Adhesions. PROCEDURES: Right knee: 1. Open osteochondral allograft transplantation to trochlear chondral defect. 2. Open osteochondral allograft transplantation to medial femoral condyle chondral defect. 3. Arthroscopic-assisted anterior cruciate ligament reconstruction with allograft hamstring. 4. Arthroscopic all-inside medial meniscal repair. 5. Arthroscopic partial lateral meniscectomy. 6. Arthroscopic extensive synovectomy/lysis of adhesions. 7. Arthroscopic intraarticular platelet-rich plasma injection. SPECIMENS: None. COMPLICATIONS: None. TOURNIQUET TIME: 0 minutes. DRAINS: None. IMPLANTS: 1. Arthrex: TightRope button for femoral-sided fixation of ACL graft, 12 mm x 28 mm BioComposite Delta screw for tibial-sided fixation of ACL graft, 3 mm x 28 mm bio-compression screw for medial femoral condyle, osteochondral allograft fixation. 2. Allografts: 10 mm femoral osteochondral allograft course x2 (2 transplantations done), semitendinosus allograft tendon x2 (for ACL reconstruction). 3. Mineral[employer] sequence meniscal repair system, 4 implants/1 kit opened and used for medial meniscal repair. ESTIMATED BLOOD LOSS: 20 mL. DISPOSITION: The patient was extubated and transferred to PACU in stable condition, and tolerated the procedure well. SURGEON: Alexander Negrete MD DRY WALL NAILER: Lori Salmeron PA-C JUSTIFICATION FOR DRY WALL NAILER: Lori Salmeron is a certified physician patient observation assistant whose skilled surgical service was an absolute necessity for successful completion of the procedure, as he provided skilled surgical assistance with positioning of the patient, positioning of extremity, management of surgical field, retraction of neurovascular structures, preparation of trochlea osteochondral allograft donor and recipient transplantation, preparation of medial femoral condyle osteochondral allograft donor and recipient areas for transplantation, placement of both osteochondral allograft transplantations, preparation of ACL allograft, preparation of femoral and tibial tunnels and passing of ACL graft as well as fixation of graft, handling of arthroscopic equipment including medial meniscal repair, partial meniscectomy, and the synovectomy, wounds closure, fitting and placement in postop brace. Lori Salmeron was present for the entire case and was an absolute necessity for successful completion of the procedure. TYPE OF ANESTHESIA: General endotracheal anesthesia with a postoperative regional nerve block placed by Anesthesia staff in PACU. INDICATIONS FOR SURGERY: The patient is a 57-year-old male with a past medical history significant for hepatitis C, asthma, who was started under my care since 06/17/2017 for his right ankle pain and lateral swelling for three months as well as right knee pain for 6 months. The right ankle clinically and on MRI was diagnosed with a peroneal tendon partial tear as well as an intratendinous ganglion cyst. He underwent debridement of the peroneal tendon and primary repair and the peroneal tendon on 07/15/2017 at [facility] successfully and recovered from the surgery and was very happy with its outcome with full yazidi of function and range of motion. As he was recovering, he continued to complain of right knee 10/10 pain. He had a previous MRI done at [facility] on 05/18/2017, referred by his primary physician before my care of the right knee which was read as; 1. 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 2. Medial and lateral menisci are intact. 3. ACL grade 2 sprain, possible distal insertion of partial tear, PCL buckling, MCL and LCL chronic sprain. 4. Proximal medial head of gastrocnemius muscle tendon insertion, small fluid suggestive of tendonitis. Under my care, he underwent a cortisone mixture injection on 10/27/2017, and was placed in a Neoprene hinge knee brace and was referred to physical therapy. He reported that the injection provided him with near complete resolution of pain that only lasted a few weeks and it returned to baseline pain and dysfunction. He stated that without the brace, he was unable to work due to the amount of pain and multiple episodes of giving way and instability. He has been placed in an [id number] ACL brace. He was compliant with his physical therapy both for his ankle and his knee. After failing conservative treatments for about two months, the patient returned and said that he was unable to return to work due to the degree of right knee pain and disability. At that point in time, he underwent a repeat MRI of the right knee, which was done at [facility] on 11/30/2017 and read as; 1. Mild increase in the anterior intercondylar focus of osteonecrosis and surrounding mild marrow edema since baseline study of 05/18/2017. 2. Mild degenerative meniscal changes. In my review of the imaging and discussing the case with the reading [facility] radiologist for both MRIs, this was indeed an area of full thickness cartilage loss at the intercondylar notch/medial femoral condyle and trochlea. Due to the weak findings on the MRI and the patient's age, as well as insurance issues with covering expenses for expensive allograft, he was indicated for a right knee diagnostic arthroscopy with possible medial and lateral meniscal repairs and all related indicated arthroscopic procedures. He underwent the procedure on 12/09/2017 at [facility]. I personally did the surgery and on our diagnostic arthroscopy, we found that at the medial femoral condyle, there was a full-thickness cartilage defect measuring at that point in time 6 mm x 6 mm, there was a full-thickness zone of chondral injury at the trochlea measuring 6 mm x 9 mm at the time, there was essentially a full-thickness ACL tear with fibrous scar down to the PCL with resulting grade 3 ACL instability on examination under anesthesia, the medial meniscus and lateral meniscus exhibited peripheral tears and some red-white zone tears with the peripheral red-red zone tears being repairable and he did undergo meniscal repair to both the lateral and medial meniscus. There was also significant synovitis with hypertrophic fat pad, medial plica band that was symptomatic and extensive synovitis throughout all 3 compartments of the knee. After undergoing the first procedure with successful medial and lateral meniscal repairs and extensive synovectomy with PRP injection, the patient recovered well and had full range of motion, but continued to complain of pain localized to the middle of the knee and medial femoral condyle as well as instability. After reviewing his arthroscopic imaging with him and explaining to him that the rest of his cartilage surface was intact with no evidence of injury or even arthritis with his age, we decided to proceed with the second stage of his surgery. He was indicated for right knee open osteochondral allograft transplantation to the full-thickness chondral defect of the trochlea, open osteochondral allograft transplantation to the full-thickness chondral defect of the medial femoral condyle, arthroscopic-assisted ACL reconstruction with allograft, evaluation of the rest of the knee and all arthroscopic indicated related procedures as needed including possible revision or supplemental meniscal repairs. I reviewed at length the risks, benefits, and alternatives of the procedures with the patient and his with the risks including, but not limited to infection, neurovascular damage, stiffness, development of chronic pain and disability, development of blood clots including DVT and PE, failure of allograft transplantation, failure of ACL reconstruction, graft and fixation, need for further surgery, accelerated degenerative process and chondrolysis, anesthesia reactions including . After answering all of his questions, he stated that he understood the risks and wished to proceed with surgery. I reviewed at length with them the details of the surgery, watching surgical animation videos and diagnosis animation videos as well as the video and pictures from the previous arthroscopic surgery and he stated that he had a good understanding of the diagnoses as well as the procedure to be done. He was referred to his primary care physician, Dr. Jurado for preoperative clearance and evaluation and the procedure was scheduled at [facility] on 02/24/2018 once he regained his range of motion from the first surgery to avoid any residual stiffness after the ACL reconstruction and allograft transplantation. PROCEDURE IN DETAIL: The patient was identified in the preoperative holding area and the right knee was marked for surgery. As described above, the risks, benefits and alternatives to the procedure were discussed at length with the patient and informed consent was obtained. After a brief discussion with the Anesthesia staff, perioperative IV antibiotics in the form of 2 gm Ancef were administered and the patient was taken to the operating room and placed on a well-padded operating room table with all bony prominences and superficial neurovascular structures well padded. General anesthesia was administered without difficulty or complication. An examination under anesthesia was then carried out. EXAMINATION UNDER ANESTHESIA: Right knee with no warmth, no swelling, no erythema, skin intact, significant ACL instability was present with 3+ anterior aircraft painter external rotation, internal rotation, and neutral with no endpoint, 3+ Jolene without endpoint, 3+ pivot shift, negative posterior drawer, negative reverse Jolene, negative reverse pivot shift, negative opening to medial or lateral joint lines at 0 or 30 degrees varus or valgus stress, patella with normal tracking and no evidence of instability, there was a point of patellar crepitance throughout tracking, appeared to represent the patella engaging the osteochondral defect of the trochlea, perhaps engaging at approximately 30 degrees, this was not a plica band, this was a recurrent point of crepitance. CONTINUATION OF PROCEDURE: A tourniquet was placed high on the right thigh, but never inflated. The right lower extremity was prepped and draped in standard sterile fashion. A final time-out was done with the surgeon, Anesthesia staff, OR staff, all in agreement with the patient, procedure being done and the extremity being operated on. 50 mL of normal saline were used to insufflate the knee joint. Anterolateral portal was created with stab incision through the skin, down to subcutaneous tissues, down to the level of the capsule. A blunt arthroscopic trocar and cannula were inserted into the suprapatellar pouch. Arthroscopic camera was inserted, and insufflation of arthroscopic fluid was begun. With the use of spinal needle localization, anteromedial portal was created with stab incision through the skin down to subcutaneous tissues, down to the level of the capsule. The previous two incisions from the previous surgery were used. An accessory cannula was inserted into the anteromedial portal and the knee joint was copiously irrigated for better visualization and removal of synovial debris. With the arthroscopic probe, a diagnostic arthroscopy was then carried out. DIAGNOSTIC ARTHROSCOPY: Attention was first turned towards the suprapatellar pouch, where there were some adhesions seen, attention was turned towards the patellofemoral joint, where the patella exhibited intact cartilage, with no evidence of damage, just mild chondromalacia at the medial facet where it was interacting with the osteochondral defect of the trochlea, the patella was well seated with no evidence of instability, trochlea once again exhibited the full-thickness area of chondral injury, measuring during this arthroscopy 9 mm x 10 mm in width. They had grown a little in size. Attention then turned towards the medial gutter and there was no evidence of plica band or recurrent plica band, no loose bodies seen. Attention was then turned towards the medial compartment. As expected at the weightbearing aspect of the medial femoral condyle, there was a full thickness chondral defect measuring 7 mm x 7 mm, slightly larger than previous assessment. The medial tibial plateau cartilage was intact with no evidence of injury and the rest of the medial femoral condyle cartilage was intact with no evidence of injury or wear. The medial meniscus on careful evaluation had the suture from the previous medial meniscal repair present and was intact, there was a small/very small 1 cm peripheral tear at the under surface of the posterior horn of the medial meniscus that was easily repairable to prevent any propagation of the tear or endangering the continued healing of the previous meniscus repair with good quality tissue. Attention was then turned towards the intercondylar notch where immediately seen was the complete ACL tear with intact PCL, attention then turned towards the lateral compartment where the previous suture from the lateral meniscus repair was seen and intact with a stable lateral meniscus with no evidence of peripheral tear or hypermobility. The free edge white-white zone of the mid body of the lateral meniscus exhibited fibrillation and complex tearing in a small area that was not amenable to repair and would be a site for future partial lateral meniscectomy. There was some as seen before, adhesions in the suprapatellar pouch and some recurrent synovitis which was addressed during the surgery as well. CONTINUATION OF PROCEDURE: Extensive synovectomy: With the use of the arthroscopic shaver and radiofrequency ablation, a lysis of adhesions of the suprapatellar pouch was carried out, while maintaining good hemostasis. We also performed an extensive synovectomy in all 3 compartments removing the hypertrophic synovial inflamed tissue that had developed between the time from the last surgery as well as some remaining hypertrophic fat pad, while maintaining good hemostasis. Once this was completed to satisfaction, we turned our attention to debridement of the any remnant ACL stump with the use of the shaver and radiofrequency ablation. Once this was done to satisfaction and we had clear view of both the tibial and femoral insertion points, for future ACL reconstruction, we turned our attention to the meniscal treatment. Arthroscopic partial lateral meniscectomy: With the use of the arthroscopic meniscal biters, arthroscopic shaver, arthroscopic radiofrequency ablation, a partial lateral meniscectomy was carried out removing less than 5% of the mid body of the lateral meniscus/5% of the lateral meniscus overall. This was done to establish a smooth contour at this white-white zone free edge tear that was not repairable. With the arthroscopic probe, careful evaluation of the periphery of the meniscus and the previous lateral meniscus repair was evaluated and indeed the lateral meniscus repair was found to be stable with good evidence of healing of the periphery with no evidence of hypermobility or instability of the lateral meniscus. ALL-INSIDE MEDIAL MENISCUS REPAIR: As stated before, the medial meniscus had a small peripheral red-red zone tear measuring approximately 1 cm of visualized from the undersurface of the medial meniscus at the posterior horn. The previous medial meniscal repair was intact, with the suture presenting good stability achieved. Decision was made to reinforce the repair and to prevent any future propagation of this tear that was new. This only required the use of 4 implants/one kit from the [employer] all-inside meniscal repair system. Four implants were placed in total, resulting in alternating horizontal and vertical mattress sutures at the undersurface of the medial meniscus. Reinforcing the previous repair and reducing the posterior horn to the posterior medial capsule, providing good stability, at this peripheral red-red zone tear. All of the implants have good capsular sided fixation and was very pleased with the outcome of the previous repair as well as the supplemental repair performed today. With the use of the probe, the previous medial meniscal repair and the repair performed today were tested and as stated before, was very satisfied with the outcome. ARTHROSCOPIC ASSISTED ACL RECONSTRUCTION WITH ALLOGRAFT: With the use of the radiofrequency ablation and arthroscopic shaver, the path for the ACL reconstruction was cleaned out and debrided to allow for visualization and access to creation of the tunnels and passage of the graft. An arthroscopic minerva was used to create a notchplasty and open up the areas of impingement at the notch and to provide more space to protect the ACL reconstruction graft. Once this was performed to satisfaction, the femoral tunnel was created. With the Arthrex over the top of FlipCutter guide, optimal femoral tunnel placement was identified, while maintaining good back wall of the lateral femoral condyle. This was a single tunnel anatomic ACL reconstruction. Incision was made at the lateral aspect of the lateral femoral condyle through the skin down to subcutaneous tissue down to the iliotibial band as a small 1 cm incision and the guide was passed over and placed directly on to the lateral femoral condyle cortical bone. The FlipCutter drill was passed from outside to in until it was seen in an intra-articular position. The graft created by my patient observation assistant consisting of two semitendinosus tendons measured 10 mm in width and therefore a 10 mm width femoral tunnel was created to a depth of 30 mm after the drill was seen in an intra-articular position and confirmed to be in a good position. The 30-mm socket was created without violating the lateral cortex of the lateral femoral condyle. FlipCutter drill was removed and the suture was passed through the tunnel and secured around outside of the lateral femoral condyle. Attention then turned towards creation of the tibial tunnel and with the use of Arthrex tibial tunnel guide, a full-thickness 10-mm tunnel was created at the [place] ACL insertion as an anatomic single tunnel technique. Incision had been made through skin down to subcutaneous tissue at the level of the proximal medial tibia to allow for access for placement of the tunnel. Once the tunnel was completed, all interposed soft tissue at the anterior point of the tunnel was debrided and imaging was taken confirming an intact tunnel all throughout with good placement. A shaver was used to debride the entry and exit of the tunnel. At that point in time, we passed the passage suture from the femoral tunnel to the tibial tunnel and doubled over semitendinosus allograft x2 consisting of 4 strands in total were passed over through the tibial tunnel and the TightRope was passed into the femoral tunnel and flipped under direct fluoroscopic visualization with no interposed soft tissue on to the lateral cortex of the lateral femoral condyle. At that point in time, with my patient observation assistant providing counter pressure, the graft was advanced into the femoral tunnel up to the 25 mm kirsty with good fixation achieved on the femoral side. At that point in time, we proceeded with tibial sided fixation. Tension was held on the graft with 30 cycles of full range of motion of the knee were conducted to remove any creep from the system. With tension on all 4 strands of the doubled over semitendinosus tendons x2, applied by my patient observation assistant, a 12 mm x 28 mm length biocomposite screw from Arthrex was placed in the tibial tunnel while a posterior drill was applied to the knee providing good tibial-sided fixation for the ACL allograft reconstruction. The ACL was tested and indeed all ACL stability had returned with no evidence of instability with negative anterior drawer, negative Jolene, negative pivot shift. All excess graft and suture were removed and attention was then turned towards the open portion of the procedure. The anterior medial portal was expanded approximately up to the mid point of the patella to ensure no damage to the . Incision was made through skin, down to subcutaneous tissue while maintaining good hemostasis down to the level of the retinaculum. The retinaculum was sharply incised just on the medial aspect of the patellar tendon to allow for access to both the trochlea lesion and the medial femoral condyle lesion. With the retractors in place, we turned our attention to the medial femoral condyle lesion first. The sizer for the 10-mm graft was used and we felt that it was of good coverage. This lesion was a little bit more medial with a small area of uncovered core from the transplant due to the nature of the anatomy of the medial aspect of the medial femoral condyle and therefore we decided to back up the press fit of the graft with a biocomposite screw as well. The recipient area for the graft was scored out with the hand scoring reamer and the premeasured depth of 14 mm, 10 mm core of damaged chondral defect was removed. The prepared 10-mm osteochondral plug was then and reshaped a little bit to fit into the recipient and it was carefully impacted into position until it had a good press fit. The construct was tested and indeed was found to be stable, but as stated before, I wanted to reinforce this particular transplant. A 3 mm x 28 mm length bio-compression screw from Arthrex with changing pitch was utilized to provide stability to the construct. Sequential drilling utilizing their technique was employed with the pin placed in an optimal position center on the graft first. Then the tap was passed over the guidewire as well as the cannulated drill. Finally the screw was placed after the guidewire was removed and good fixation was achieved and the stability was tested vigorously and the plug was found to be stable. With the use of a rongeur the most medial aspect of the plug was trimmed down to fit the contour of the medial aspect of the medial femoral condyle and good pictures were taken and we had a good excellent resulting osteochondral allograft transplant to the medial femoral condyle. Attention was then turned towards the trochlea. OPEN OSTEOCHONDRAL ALLOGRAFT TRANSPLANTATION OF TROCHLEA: With the retractors in place through the expanded anterior medial portal incision, we were able to gain access to the trochlea. The chondral defect was sized with the sizer for the 10 mm donor. The sizer showed good coverage for the lesion. The hand coin reamer for the recipient sites was passed to a 14 mm depth. A successful 14 mm core was removed. Any obstructions at the entrance including cartilage fragments were removed and the core inside was copiously irrigated. The donor plug which was a 10 mm osteochondral allograft core was then washed and prepared. The osteochondral allograft core was then carefully impacted into position at the recipient site with good press fit stability achieved and good flesh fit of the chondral surface achieved. This was a great osteochondral allograft transplantation with no step-off appreciated or palpated. Good pictures were taken. We then proceeded with copious irrigation of the wound and the wound closure of the medial arthrotomy. Deep tissue was re-approximated with #1 Vicryl suture for retinaculum followed by 2-0 Vicryl suture for subcutaneous tissue, followed by Monocryl for skin. Arthroscopic camera was then inserted once again to take good arthroscopic pictures of both zones of osteochondral transplantation and indeed under direct visualization, you can see that the chondral surfaces were flushed and there was no step-off appreciated with a great osteochondral allograft transplantation construct resulting to both the medial femoral condyle and trochlea. Once final arthroscopic imaging were taken of the meniscus repair, partial lateral meniscectomy, both osteochondral allograft transplantation to the medial femoral condyle with the bio compression screw as well as the trochlea and the ACL reconstruction graft, all arthroscopic fluid and debris were removed from the knee joint. INTRAARTICULAR PRP INJECTION: After all arthroscopic fluid and debris were removed from the knee joint, with the help of Anesthesia staff, 7 mL of PRP were injected intra-articularly under direct visualization through the arthroscopic camera. All wounds and arthroscopic portals were then reapproximated with #1 Vicryl suture for deep tissue including iliotibial band, 2-0 Vicryl suture for subcutaneous tissue, followed by Vicryl for skin. Sterile dressings were applied, followed by a layer of sterile cast padding from the toes up to the superior thigh, then a layer of compressive Yves wrap from the toes up to the superior thigh were placed. The knee was then fitted and placed in a postop hinged knee brace, locked in extension. The patient was then extubated and transferred to the PACU in stable condition and tolerated the procedure well. DISPOSITION: The patient will be discharged home once he has recovered from anesthesia. He will work with physical therapy and be strict nonweightbearing to the right lower extremity with crutches. He is instructed to keep the dressings and the brace clean, dry, and intact until they follow up in the office. He was given prescription for Percocet by his primary care physician who is managing his pain. He has been given a prescription for Lovenox DVT prophylaxis, to start on postoperative day #1. He will follow up in my office within one week and already has his postoperative appointment set up. He will contact me directly with any questions or concerns. Alexander Negrete MD
== END 2018-02-24 16:42 | disposition home or self-care (01) ==
LOC: C.SDS 05:40
PROVIDERS: ATTEND Student in an Organized Health Care Education/Training Program
DX: M93.261 Osteochondritis dissecans, right knee (principal); S83.511D Sprain of anterior cruciate ligament of right knee, subsequent encounter; S83.231D Complex tear of medial meniscus, current injury, right knee, subsequent encounter; I20.9 Angina pectoris, unspecified; J45.909 Unspecified asthma, uncomplicated; F17.200 Nicotine dependence, unspecified, uncomplicated; B19.10 Unspecified viral hepatitis B without hepatic coma; Z86.19 Personal history of other infectious and parasitic diseases; M65.9 Synovitis and tenosynovitis, unspecified; M21.961 Unspecified acquired deformity of right lower leg; S83.241A Other tear of medial meniscus, current injury, right knee, initial encounter; S83.281A Other tear of lateral meniscus, current injury, right knee, initial encounter
CPT/HCPCS: 0232T; 27415; 27428; 29876; 29881; 29883; 29884; 97116; 97161; C1713; C1762; G8978; G8979; G8980; J0131; J0171; J0690; J1100; J1170; J2001; J2250; J2405; J2704; J2710; J3010